=== PATIENT | female | born 1945 | race Caucasian/White ===

== ENCOUNTER 2021-07-18 16:07 | Inpatient (IN) | payer MEDICARE ==
[~2021-07-18] VITALS: Ht 160 cm; Wt 49.4 kg
[~2021-07-18 16:07] MED LIST: AMLO10TA55 PO; HYDR50TA36 PO; LINA5TAB PO; METO50 PO; REPA1TAB5 PO
[2021-07-18 16:52] LABS: BASOPHILS % (AUTO) 0.2 % (0.0-2.0); EOSINOPHILS % (AUTO) 0.8 % (1.0-6.0); HEMATOCRIT 27.1 % (36-46); HEMOGLOBIN 9.1 g/dL (12.0-16.0); LYMPHOCYTES # (AUTO) 0.9 K/uL (1.0-4.8); LYMPHOCYTES % (AUTO) 9.8 % (22.0-44.0); MEAN CORPUSCULAR HEMOGLOBIN 30.3 pg (26.0-34.0); MEAN CORPUSCULAR HGB CONC 33.5 G/dL (31.0-37.0); MEAN CORPUSCULAR VOLUME 91 fL (80-100); MONOCYTES # (AUTO) 0.9 K/uL (0.1-1.0); MONOCYTES % (AUTO) 9.5 % (2.0-9.0); NEUTROPHILS # (AUTO) 7.3 K/uL (1.8-7.7); NEUTROPHILS % (AUTO) 79.7 % (40.0-70.0); PLATELET COUNT (AUTO) 183 K/uL (150-450); RED CELL DISTRIBUTION WIDTH 13.7 % (11.5-14.5)
[2021-07-18 17:01] LABS: CREATININE 1.89 mg/dL (0.60-1.30); POTASSIUM 4.6 mmol/L (3.5-5.1)
[2021-07-18 17:03] LABS: COVID AG,FIA SOURCE NASOPHARYNGEAL
[2021-07-18 17:16] LABS: ALBUMIN 3.1 g/dL (3.4-5.0); BILIRUBIN,TOTAL 0.4 mg/dL (0.1-1.0); FREE T4 (FREE THYROXINE) 1.31 ng/dL (0.76-1.46); THYROID STIMULATING HORMONE 2.7 uIU/mL (0.36-3.74); TOTAL PROTEIN, SERUM 7.6 g/dL (6.4-8.2)
[2021-07-18 17:26] LABS: INFLUENZA TYPE A NEGATIVE FOR TYPE A (NEGATIVE); INFLUENZA TYPE B NEGATIVE FOR TYPE B (NEGATIVE)
[2021-07-18] MEDS ORDERED: FUROSEMIDE 20 MG/2 ML VIAL IVP ONE (17:30)
[2021-07-18] MEDS ORDERED: ASPIRIN 81 MG CHEWABLE TABLET PO ONE (17:30)
[2021-07-18] MEDS ORDERED: 0.9% SODIUM CHLORIDE 10 ML SYRINGE IVP PRN (18:15)
[2021-07-18] MEDS ORDERED: ONDANSETRON HCL 4 MG/2 ML VIAL IVP PRN ×2 (18:15→20:30)
[2021-07-18] MEDS ORDERED: ACETAMINOPHEN 325 MG TABLET PO PRN (18:15)
[2021-07-18] MEDS ORDERED: DEXTROSE 50%-WATER 25 GM/50 ML SYRINGE IVP PRN (20:30)
[2021-07-18] MEDS ORDERED: INSULIN LISPRO 100 UNITS/ML SQ PRN (20:30)
[2021-07-18 21:36] VITALS: BP 194/89
[2021-07-18 21:46] LABS: % IRON SATURATION 6.5 % (22-44)
[2021-07-18] MEDS: FUROSEMIDE 40 MG/4 ML VIAL IVP SCH (21:56)
[2021-07-18] MEDS: HEPARIN SODIUM,PORCINE 5,000 UNITS/ML VIAL SQ SCH (23:44)
[2021-07-19] VITALS (8 sets, daily range): BP systolic 121–186; BP diastolic 51–82
[2021-07-19 06:48] LABS: GLUCOMETER DEV NAME(LOC) 5S.2B; GLUCOSE,POINT OF CARE 77 MG/DL (70-110)
[2021-07-19] MEDS ORDERED: DEXTROSE 50%-WATER 25 GM/50 ML SYRINGE IVP PRN (07:15)
[2021-07-19 08:02] LABS: BASOPHILS % (AUTO) 0.2 % (0.0-2.0); EOSINOPHILS % (AUTO) 0.1 % (1.0-6.0); HEMATOCRIT 27.1 % (36-46); HEMOGLOBIN 9.1 g/dL (12.0-16.0); LYMPHOCYTES # (AUTO) 0.9 K/uL (1.0-4.8); LYMPHOCYTES % (AUTO) 8.9 % (22.0-44.0); MEAN CORPUSCULAR HEMOGLOBIN 30.1 pg (26.0-34.0); MEAN CORPUSCULAR HGB CONC 33.6 G/dL (31.0-37.0); MEAN CORPUSCULAR VOLUME 89 fL (80-100); MONOCYTES # (AUTO) 0.8 K/uL (0.1-1.0); MONOCYTES % (AUTO) 7.4 % (2.0-9.0); NEUTROPHILS # (AUTO) 8.8 K/uL (1.8-7.7); NEUTROPHILS % (AUTO) 83.4 % (40.0-70.0); PLATELET COUNT (AUTO) 186 K/uL (150-450); RED BLOOD CELL COUNT(AUTO) 3.03 MIL/uL (4.00-5.20); RED CELL DISTRIBUTION WIDTH 13.2 % (11.5-14.5)
[2021-07-19] MEDS: FUROSEMIDE 40 MG/4 ML VIAL IVP SCH ×2 (08:06→20:47)
[2021-07-19] MEDS: CARVEDILOL 3.125 MG TABLET PO SCH ×2 (08:07→20:48)
[2021-07-19] MEDS: ASPIRIN 81 MG CHEWABLE TABLET PO SCH (08:07)
[2021-07-19] MEDS: LinaGLIPtin 5 MG TABLET PO SCH (08:07)
[2021-07-19] MEDS: AmLODIPine BESYLATE 10 MG TABLET PO SCH (08:08)
[2021-07-19] MEDS: HEPARIN SODIUM,PORCINE 5,000 UNITS/ML VIAL SQ SCH ×2 (08:08→16:37)
[2021-07-19] MEDS: HydrALAZINE HCL 50 MG TABLET PO SCH ×3 (08:08→20:57)
[2021-07-19 08:09] LABS: CALCIUM, TOTAL 8.3 mg/dL (8.8-10.5); CREATININE 1.71 mg/dL (0.60-1.30); MAGNESIUM 1.9 mg/dL (1.80-2.40); POTASSIUM 3.5 mmol/L (3.5-5.1)
[2021-07-19] MEDS ORDERED: ATORVASTATIN CALCIUM 20 MG TABLET PO SCH (09:00)
[2021-07-19] MEDS ORDERED: BISACODYL 5 MG EC TABLET PO PRN (14:00)
[2021-07-19] MEDS ORDERED: SODIUM CHLORIDE 0.9% 250 ML IV ONE (14:31)
[2021-07-19] MEDS: AZITHROMYCIN 500 MG/NS 250 ML IV SCH (14:37)
[2021-07-19] MEDS: CefTRIAXone 1 GM/DEXTROSE 50 ML IV SCH (16:31)
[2021-07-19] MEDS ORDERED: REPAGLINIDE 1 MG TABLET PO SCH (17:30)
[2021-07-19 18:00] LABS: GLUCOMETER DEV NAME(LOC) 5S.2B; GLUCOSE,POINT OF CARE 280 MG/DL (70-110)
[2021-07-19] MEDS: INSULIN LISPRO 100 UNITS/ML SQ PRN ×2 (18:13→20:52)
[2021-07-19 20:18] LABS: GLUCOMETER DEV NAME(LOC) 5S.1; GLUCOSE,POINT OF CARE 182 MG/DL (70-110)
[2021-07-19] MEDS: ATORVASTATIN CALCIUM 20 MG TABLET PO SCH (20:47)
[2021-07-19 23:51] LABS: GLUCOMETER DEV NAME(LOC) 5N.1C; GLUCOSE,POINT OF CARE 211 MG/DL (70-110)
[2021-07-19 23:57] LABS: GLUCOMETER DEV NAME(LOC) 5N.3; GLUCOSE,POINT OF CARE 102 MG/DL (70-110)
[2021-07-20 00:07] VITALS: BP 110/54
[2021-07-20] MEDS: HEPARIN SODIUM,PORCINE 5,000 UNITS/ML VIAL SQ SCH ×3 (00:31→15:29)
[2021-07-20] MEDS: ACETAMINOPHEN 325 MG TABLET PO PRN (00:32)
[2021-07-20 04:45] VITALS: BP 126/62
[2021-07-20] MEDS: INSULIN LISPRO 100 UNITS/ML SQ PRN ×4 (07:02→20:58)
[2021-07-20 07:22] LABS: BASOPHILS % (AUTO) 0.4 % (0.0-2.0); EOSINOPHILS % (AUTO) 1.1 % (1.0-6.0); HEMATOCRIT 27.1 % (36-46); HEMOGLOBIN 9.1 g/dL (12.0-16.0); LYMPHOCYTES # (AUTO) 1.1 K/uL (1.0-4.8); LYMPHOCYTES % (AUTO) 12.6 % (22.0-44.0); MEAN CORPUSCULAR HGB CONC 33.6 G/dL (31.0-37.0); MEAN CORPUSCULAR VOLUME 89 fL (80-100); MONOCYTES # (AUTO) 0.7 K/uL (0.1-1.0); MONOCYTES % (AUTO) 7.9 % (2.0-9.0); NEUTROPHILS # (AUTO) 6.7 K/uL (1.8-7.7); PLATELET COUNT (AUTO) 224 K/uL (150-450); RED BLOOD CELL COUNT(AUTO) 3.03 MIL/uL (4.00-5.20); RED CELL DISTRIBUTION WIDTH 13.6 % (11.5-14.5)
[2021-07-20 07:42] VITALS: BP 150/64
[2021-07-20 07:49] LABS: CREATININE 2.12 mg/dL (0.60-1.30); PHOSPHORUS 3.9 mg/dL (2.5-4.9); POTASSIUM 3.6 mmol/L (3.5-5.1)
[2021-07-20] MEDS: ASPIRIN 81 MG CHEWABLE TABLET PO SCH (08:55)
[2021-07-20] MEDS: LinaGLIPtin 5 MG TABLET PO SCH (08:56)
[2021-07-20] MEDS: MULTIVITAMINS WITH MINERALS, THERAPEUTIC TABLET PO SCH (08:56)
[2021-07-20] MEDS: ATORVASTATIN CALCIUM 20 MG TABLET PO SCH (08:56)
[2021-07-20] MEDS: CARVEDILOL 3.125 MG TABLET PO SCH ×2 (08:56→20:51)
[2021-07-20] MEDS: HydrALAZINE HCL 50 MG TABLET PO SCH ×3 (08:56→20:51)
[2021-07-20] MEDS: AmLODIPine BESYLATE 10 MG TABLET PO SCH (08:56)
[2021-07-20] MEDS: FUROSEMIDE 40 MG/4 ML VIAL IVP SCH (08:56)
[2021-07-20 11:12] LABS: GLUCOMETER DEV NAME(LOC) 5N.1C; GLUCOSE,POINT OF CARE 169 MG/DL (70-110)
[2021-07-20 12:19] VITALS: BP 143/62
[2021-07-20] MEDS: CefTRIAXone 1 GM/DEXTROSE 50 ML IV SCH (14:17)
[2021-07-20] MEDS: AZITHROMYCIN 500 MG/NS 250 ML IV SCH (15:25)
[2021-07-20 15:44] VITALS: BP 129/55
[2021-07-20 17:08] LABS: APPEARANCE,URINE CLEAR (CLEAR); BILIRUBIN,URINE NEGATIVE (NEGATIVE); GLUCOSE, URINE (UA) NEGATIVE (NEGATIVE); KETONES,URINE NEGATIVE (NEGATIVE); LEUKOCYTE ESTERASE ,URINE NEGATIVE (NEGATIVE); NITRATE,URINE NEGATIVE (NEGATIVE); OCCULT BLOOD,URINE NEGATIVE (NEGATIVE); UROBILINOGEN,URINE 0.2 mg/dL (<=1.0)
[2021-07-20 17:18] LABS: BACTERIA,URINE None Seen /HPF (None Seen); PROTEIN,URINE NEGATIVE (NEGATIVE); RBC,URINE None Seen /HPF (0-2); WBC,URINE None Seen /HPF (0-5)
[2021-07-20 19:50] VITALS: BP 124/54
[2021-07-20] MEDS: FUROSEMIDE 40 MG TABLET PO SCH (20:51)
[2021-07-21 00:06] VITALS: BP 136/68
[2021-07-21 04:10] VITALS: BP 125/64
[2021-07-21 07:52] VITALS: BP 153/62
[2021-07-21] MEDS: HEPARIN SODIUM,PORCINE 5,000 UNITS/ML VIAL SQ SCH ×4 (08:00→23:50)
[2021-07-21] MEDS: AmLODIPine BESYLATE 10 MG TABLET PO SCH (08:19)
[2021-07-21] MEDS: CARVEDILOL 3.125 MG TABLET PO SCH ×2 (08:19→20:12)
[2021-07-21] MEDS: FUROSEMIDE 40 MG TABLET PO SCH (08:29)
[2021-07-21] MEDS: ASPIRIN 81 MG CHEWABLE TABLET PO SCH (08:29)
[2021-07-21] MEDS: ATORVASTATIN CALCIUM 20 MG TABLET PO SCH (08:29)
[2021-07-21] MEDS: MULTIVITAMINS WITH MINERALS, THERAPEUTIC TABLET PO SCH (08:30)
[2021-07-21] MEDS: LinaGLIPtin 5 MG TABLET PO SCH (08:30)
[2021-07-21] MEDS: HydrALAZINE HCL 50 MG TABLET PO SCH ×3 (09:40→20:12)
[2021-07-21 10:41] LABS: BASOPHILS % (AUTO) 0.3 % (0.0-2.0); EOSINOPHILS % (AUTO) 1.3 % (1.0-6.0); HEMATOCRIT 25.9 % (36-46); HEMOGLOBIN 8.6 g/dL (12.0-16.0); LYMPHOCYTES # (AUTO) 0.6 K/uL (1.0-4.8); LYMPHOCYTES % (AUTO) 8.1 % (22.0-44.0); MEAN CORPUSCULAR HEMOGLOBIN 29.8 pg (26.0-34.0); MEAN CORPUSCULAR HGB CONC 33.3 G/dL (31.0-37.0); MEAN CORPUSCULAR VOLUME 90 fL (80-100); MONOCYTES # (AUTO) 0.6 K/uL (0.1-1.0); MONOCYTES % (AUTO) 8.2 % (2.0-9.0); NEUTROPHILS # (AUTO) 6.2 K/uL (1.8-7.7); NEUTROPHILS % (AUTO) 82.1 % (40.0-70.0); PLATELET COUNT (AUTO) 234 K/uL (150-450); RED BLOOD CELL COUNT(AUTO) 2.89 MIL/uL (4.00-5.20); RED CELL DISTRIBUTION WIDTH 13.4 % (11.5-14.5)
[2021-07-21 10:55] LABS: INR 0.9 (0.9-1.1); PROTHROMBIN TIME 10.1 SEC (9.4-11.6)
[2021-07-21 11:11] LABS: CALCIUM, TOTAL 8.5 mg/dL (8.8-10.5); CREATININE 2.27 mg/dL (0.60-1.30); POTASSIUM 4.2 mmol/L (3.5-5.1)
[2021-07-21 11:57] LABS: GLUCOMETER DEV NAME(LOC) 5N.3; GLUCOSE,POINT OF CARE 214 MG/DL (70-110)
[2021-07-21] MEDS: INSULIN LISPRO 100 UNITS/ML SQ PRN ×3 (12:18→20:14)
[2021-07-21 12:28] LABS: GLUCOMETER DEV NAME(LOC) 5N.3; GLUCOSE,POINT OF CARE 291 MG/DL (70-110)
[2021-07-21] MEDS: CefTRIAXone 1 GM/DEXTROSE 50 ML IV SCH (13:26)
[2021-07-21 14:05] LABS: PROTHROMBIN TIME 10.2 SEC (9.4-11.6)
[2021-07-21 14:15] LABS: SPECIMENTYPE,BODY FLUID THORACENTESIS
[2021-07-21 14:42] LABS: APPEARANCE,SPUN,BODY FLUID CLEAR (CLEAR); APPEARANCE,UNSPUN,BODY FLUID CLOUDY (CLEAR); BASOPHILS,BODY FLUID 0 %; COLOR,BODY FLUID YELLOW (LT YELLOW); EOSINOPHILS,BF (ANAL) 0 %; LYMPHOCYTES,BODY FLUID 28 %; MONOCYTES,BODY FLUID 3 %; NEUTROPHILS,BODY FLUID 58 %; TOTAL VOLUME,BODY FLUID 450 mL; WBC, BODY FLUID 69 /cu. mm.
[2021-07-21 14:44] LABS: OTHER CELLS,BODY FLUID 11
[2021-07-21] MEDS: AZITHROMYCIN 500 MG/NS 250 ML IV SCH (15:44)
[2021-07-21 15:49] VITALS: BP 137/64
[2021-07-21 20:30] VITALS: BP 126/61
[2021-07-22] VITALS (7 sets, daily range): BP systolic 117–133; BP diastolic 44–65
[2021-07-22 00:04] LABS: GLUCOMETER DEV NAME(LOC) 5N.1C; GLUCOSE,POINT OF CARE 226 MG/DL (70-110)
[2021-07-22 00:04] LABS: GLUCOMETER DEV NAME(LOC) 5N.1C; GLUCOSE,POINT OF CARE 200 MG/DL (70-110)
[2021-07-22 00:04] LABS: GLUCOMETER DEV NAME(LOC) 5N.1C; GLUCOSE,POINT OF CARE 257 MG/DL (70-110)
[2021-07-22 00:04] LABS: GLUCOMETER DEV NAME(LOC) 5N.1C; GLUCOSE,POINT OF CARE 220 MG/DL (70-110)
[2021-07-22 00:04] LABS: GLUCOMETER DEV NAME(LOC) 5N.1C; GLUCOSE,POINT OF CARE 258 MG/DL (70-110)
[2021-07-22] MEDS: INSULIN LISPRO 100 UNITS/ML SQ PRN ×4 (05:33→20:52)
[2021-07-22 06:43] LABS: BASOPHILS % (AUTO) 0.6 % (0.0-2.0); EOSINOPHILS % (AUTO) 2.4 % (1.0-6.0); HEMATOCRIT 22.2 % (36-46); HEMOGLOBIN 7.5 g/dL (12.0-16.0); LYMPHOCYTES # (AUTO) 0.9 K/uL (1.0-4.8); LYMPHOCYTES % (AUTO) 15.1 % (22.0-44.0); MEAN CORPUSCULAR HEMOGLOBIN 30.2 pg (26.0-34.0); MEAN CORPUSCULAR HGB CONC 33.8 G/dL (31.0-37.0); MEAN CORPUSCULAR VOLUME 89 fL (80-100); MONOCYTES # (AUTO) 0.5 K/uL (0.1-1.0); NEUTROPHILS # (AUTO) 4.4 K/uL (1.8-7.7); NEUTROPHILS % (AUTO) 72.9 % (40.0-70.0); PLATELET COUNT (AUTO) 213 K/uL (150-450); RED BLOOD CELL COUNT(AUTO) 2.48 MIL/uL (4.00-5.20)
[2021-07-22 07:04] LABS: CALCIUM, TOTAL 8.1 mg/dL (8.8-10.5); CREATININE 2.34 mg/dL (0.60-1.30); POTASSIUM 3.7 mmol/L (3.5-5.1)
[2021-07-22 08:23] LABS: GLUCOMETER DEV NAME(LOC) 5N.1C; GLUCOSE,POINT OF CARE 175 MG/DL (70-110)
[2021-07-22] MEDS: LinaGLIPtin 5 MG TABLET PO SCH (08:35)
[2021-07-22] MEDS: ATORVASTATIN CALCIUM 20 MG TABLET PO SCH (08:35)
[2021-07-22] MEDS: MULTIVITAMINS WITH MINERALS, THERAPEUTIC TABLET PO SCH (08:36)
[2021-07-22] MEDS: ASPIRIN 81 MG CHEWABLE TABLET PO SCH (08:36)
[2021-07-22] MEDS: CARVEDILOL 3.125 MG TABLET PO SCH ×2 (08:36→20:44)
[2021-07-22] MEDS: HEPARIN SODIUM,PORCINE 5,000 UNITS/ML VIAL SQ SCH ×2 (08:36→15:41)
[2021-07-22] MEDS: AmLODIPine BESYLATE 10 MG TABLET PO SCH (08:39)
[2021-07-22] MEDS: HydrALAZINE HCL 50 MG TABLET PO SCH (08:41)
[2021-07-22] MEDS ORDERED: BENZONATATE 100 MG CAPSULE PO PRN (14:15)
[2021-07-22] MEDS ORDERED: GuaiFENesin/D-METHORPHAN/PHENYLEPH 5 ML LIQUID ORAL.SYG PO PRN (14:15)
[2021-07-22] MEDS: LORATADINE 10 MG TABLET PO SCH (15:38)
[2021-07-22] MEDS: HydrALAZINE HCL 25 MG TABLET PO SCH ×2 (15:40→20:44)
[2021-07-22 17:17] LABS: GLUCOMETER DEV NAME(LOC) 5S.2B; GLUCOSE,POINT OF CARE 267 MG/DL (70-110)
[2021-07-22 22:08] LABS: GLUCOMETER DEV NAME(LOC) 5S.2B; GLUCOSE,POINT OF CARE 271 MG/DL (70-110)
[2021-07-22 22:09] LABS: GLUCOMETER DEV NAME(LOC) 5S.2B; GLUCOSE,POINT OF CARE 282 MG/DL (70-110)
[2021-07-22 22:53] LABS: APPEARANCE,URINE CLOUDY (CLEAR); BILIRUBIN,URINE NEGATIVE (NEGATIVE); GLUCOSE, URINE (UA) 100 mg/dL (NEGATIVE); KETONES,URINE NEGATIVE (NEGATIVE); LEUKOCYTE ESTERASE ,URINE NEGATIVE (NEGATIVE); NITRATE,URINE NEGATIVE (NEGATIVE); OCCULT BLOOD,URINE NEGATIVE (NEGATIVE); PROTEIN,URINE SEE CONFIRM (NEGATIVE); UROBILINOGEN,URINE 0.2 mg/dL (<=1.0)
[2021-07-22 22:57] LABS: SODIUM,URINE RANDOM 14 mmol/l (20-110); UREA NITROGEN,URINE RANDOM 585 mg/dL (350-1000)
[2021-07-22 23:05] LABS: AMORPHOUS SEDIMENT,UR Moderate /LPF (None Seen); BACTERIA,URINE Few /HPF (None Seen); RBC,URINE None Seen /HPF (0-2); SQUAMOUS EPITHELIAL CELL,UR Few /LPF (None Seen); WBC,URINE 0-2 /HPF (0-5)
[2021-07-22 23:07] LABS: SULFOSALICYLIC ACID,URINE 2+ (Negative)
[2021-07-23] VITALS (7 sets, daily range): BP systolic 114–138; BP diastolic 50–66
[2021-07-23] MEDS: HEPARIN SODIUM,PORCINE 5,000 UNITS/ML VIAL SQ SCH ×4 (00:01→23:30)
[2021-07-23] MEDS: INSULIN LISPRO 100 UNITS/ML SQ PRN ×4 (06:09→20:10)
[2021-07-23 06:22] LABS: GLUCOMETER DEV NAME(LOC) 5S.2B; GLUCOSE,POINT OF CARE 229 MG/DL (70-110)
[2021-07-23 07:06] LABS: BASOPHILS % (AUTO) 0.4 % (0.0-2.0); EOSINOPHILS % (AUTO) 3.5 % (1.0-6.0); HEMATOCRIT 22.5 % (36-46); HEMOGLOBIN 7.5 g/dL (12.0-16.0); LYMPHOCYTES # (AUTO) 0.8 K/uL (1.0-4.8); LYMPHOCYTES % (AUTO) 14.5 % (22.0-44.0); MEAN CORPUSCULAR HEMOGLOBIN 29.9 pg (26.0-34.0); MEAN CORPUSCULAR HGB CONC 33.5 G/dL (31.0-37.0); MEAN CORPUSCULAR VOLUME 89 fL (80-100); MONOCYTES # (AUTO) 0.5 K/uL (0.1-1.0); MONOCYTES % (AUTO) 9.4 % (2.0-9.0); NEUTROPHILS % (AUTO) 72.2 % (40.0-70.0); PLATELET COUNT (AUTO) 235 K/uL (150-450); RED BLOOD CELL COUNT(AUTO) 2.52 MIL/uL (4.00-5.20); RED CELL DISTRIBUTION WIDTH 13.1 % (11.5-14.5)
[2021-07-23 07:35] LABS: % IRON SATURATION 14.7 % (22-44); CALCIUM, TOTAL 8.2 mg/dL (8.8-10.5); CREATININE 2.34 mg/dL (0.60-1.30); PHOSPHORUS 4.6 mg/dL (2.5-4.9); POTASSIUM 3.8 mmol/L (3.5-5.1)
[2021-07-23] MEDS: MULTIVITAMINS WITH MINERALS, THERAPEUTIC TABLET PO SCH (09:40)
[2021-07-23] MEDS: ATORVASTATIN CALCIUM 20 MG TABLET PO SCH (09:40)
[2021-07-23] MEDS: CARVEDILOL 3.125 MG TABLET PO SCH ×2 (09:40→20:13)
[2021-07-23] MEDS: HydrALAZINE HCL 25 MG TABLET PO SCH ×3 (09:40→20:13)
[2021-07-23] MEDS: AmLODIPine BESYLATE 5 MG TABLET PO SCH (09:40)
[2021-07-23] MEDS: LORATADINE 10 MG TABLET PO SCH (09:41)
[2021-07-23] MEDS: ASPIRIN 81 MG CHEWABLE TABLET PO SCH (09:41)
[2021-07-23] MEDS ORDERED: SODIUM CHLORIDE 0.9% 250 ML IV ONE (12:09)
[2021-07-23] MEDS: SOD FERRIC GLUC COMPLX/SUCROSE 125 MG in SODIUM CHLORIDE 0.9% 100 ML IV SCH (12:13)
[2021-07-23 12:53] LABS: GLUCOMETER DEV NAME(LOC) 5S.2B; GLUCOSE,POINT OF CARE 214 MG/DL (70-110)
[2021-07-23 17:57] LABS: GLUCOMETER DEV NAME(LOC) 5S.1; GLUCOSE,POINT OF CARE 266 MG/DL (70-110)
[2021-07-24 04:45] VITALS: BP 130/52
[2021-07-24] MEDS: INSULIN LISPRO 100 UNITS/ML SQ PRN ×4 (06:00→20:27)
[2021-07-24 06:35] LABS: CALCIUM, TOTAL 8.7 mg/dL (8.8-10.5); CREATININE 2.45 mg/dL (0.60-1.30); MAGNESIUM 2.7 mg/dL (1.80-2.40); PHOSPHORUS 4.7 mg/dL (2.5-4.9); POTASSIUM 3.9 mmol/L (3.5-5.1)
[2021-07-24 08:00] VITALS: BP 121/55
[2021-07-24] MEDS: HEPARIN SODIUM,PORCINE 5,000 UNITS/ML VIAL SQ SCH ×2 (08:19→17:26)
[2021-07-24] MEDS: LORATADINE 10 MG TABLET PO SCH (08:19)
[2021-07-24] MEDS: ATORVASTATIN CALCIUM 20 MG TABLET PO SCH (08:20)
[2021-07-24] MEDS: MULTIVITAMINS WITH MINERALS, THERAPEUTIC TABLET PO SCH (08:20)
[2021-07-24] MEDS: ASPIRIN 81 MG CHEWABLE TABLET PO SCH (08:20)
[2021-07-24] MEDS: AmLODIPine BESYLATE 5 MG TABLET PO SCH (08:20)
[2021-07-24] MEDS: HydrALAZINE HCL 25 MG TABLET PO SCH ×3 (08:20→20:23)
[2021-07-24] MEDS: CARVEDILOL 3.125 MG TABLET PO SCH ×2 (08:20→20:23)
[2021-07-24] MEDS: EPOETIN ALFA 10,000 UNITS/ML VIAL SQ SCH (08:21)
[2021-07-24] MEDS: ALBUMIN HUMAN 25%-25GM/100ML 100 ML IV SCH ×3 (09:49→20:23)
[2021-07-24] MEDS ORDERED: SODIUM CHLORIDE 0.9% 250 ML IV ONE (11:01)
[2021-07-24] MEDS: SOD FERRIC GLUC COMPLX/SUCROSE 125 MG in SODIUM CHLORIDE 0.9% 100 ML IV SCH (11:16)
[2021-07-24 12:30] VITALS: BP 127/51
[2021-07-24 15:45] VITALS: BP 136/66
[2021-07-24 20:46] LABS: GLUCOMETER DEV NAME(LOC) 5N.1C; GLUCOSE,POINT OF CARE 180 MG/DL (70-110)
[2021-07-24 20:46] LABS: GLUCOMETER DEV NAME(LOC) 5N.1C; GLUCOSE,POINT OF CARE 196 MG/DL (70-110)
[2021-07-24 20:47] VITALS: BP 132/59
[2021-07-24 23:39] LABS: GLUCOMETER DEV NAME(LOC) 5S.2B; GLUCOSE,POINT OF CARE 257 MG/DL (70-110)
[2021-07-24 23:39] LABS: GLUCOMETER DEV NAME(LOC) 5S.2B; GLUCOSE,POINT OF CARE 253 MG/DL (70-110)
[2021-07-24 23:39] LABS: GLUCOMETER DEV NAME(LOC) 5S.2B; GLUCOSE,POINT OF CARE 206 MG/DL (70-110)
[2021-07-25] VITALS (8 sets, daily range): BP systolic 110–139; BP diastolic 47–65
[2021-07-25] MEDS: ALBUMIN HUMAN 25%-25GM/100ML 100 ML IV SCH (02:45)
[2021-07-25] MEDS: INSULIN LISPRO 100 UNITS/ML SQ PRN ×4 (05:32→21:11)
[2021-07-25 06:49] LABS: CALCIUM, TOTAL 8.5 mg/dL (8.8-10.5); CREATININE 2.55 mg/dL (0.60-1.30)
[2021-07-25] MEDS: HEPARIN SODIUM,PORCINE 5,000 UNITS/ML VIAL SQ SCH ×3 (08:38→15:28)
[2021-07-25] MEDS: ASPIRIN 81 MG CHEWABLE TABLET PO SCH (08:38)
[2021-07-25] MEDS: CARVEDILOL 3.125 MG TABLET PO SCH ×2 (08:38→21:02)
[2021-07-25] MEDS: ATORVASTATIN CALCIUM 20 MG TABLET PO SCH (08:39)
[2021-07-25] MEDS: MULTIVITAMINS WITH MINERALS, THERAPEUTIC TABLET PO SCH (08:39)
[2021-07-25] MEDS: HydrALAZINE HCL 25 MG TABLET PO SCH ×2 (08:39→21:02)
[2021-07-25] MEDS: LORATADINE 10 MG TABLET PO SCH (08:39)
[2021-07-25] MEDS: AmLODIPine BESYLATE 5 MG TABLET PO SCH (08:40)
[2021-07-25] MEDS: ACETAMINOPHEN 325 MG TABLET PO PRN (08:57)
[2021-07-25] MEDS: SOD FERRIC GLUC COMPLX/SUCROSE 125 MG in SODIUM CHLORIDE 0.9% 100 ML IV SCH (12:13)
[2021-07-25] MEDS ORDERED: ALBUMIN HUMAN 5%-12.5GM/250ML 250 ML IV ONE (13:00)
[2021-07-25] MEDS: FUROSEMIDE 40 MG/4 ML VIAL IVP SCH (15:44)
[2021-07-25 16:53] LABS: GLUCOMETER DEV NAME(LOC) 5N.3; GLUCOSE,POINT OF CARE 241 MG/DL (70-110)
[2021-07-25 17:28] LABS: GLUCOMETER DEV NAME(LOC) 5N.1C; GLUCOSE,POINT OF CARE 193 MG/DL (70-110)
[2021-07-26 04:09] VITALS: BP 132/56
[2021-07-26 06:38] LABS: GLUCOMETER DEV NAME(LOC) 5N.3; GLUCOSE,POINT OF CARE 310 MG/DL (70-110)
[2021-07-26 06:38] LABS: GLUCOMETER DEV NAME(LOC) 5N.3; GLUCOSE,POINT OF CARE 181 MG/DL (70-110)
[2021-07-26 07:18] LABS: BASOPHILS % (AUTO) 0.3 % (0.0-2.0); EOSINOPHILS % (AUTO) 1.3 % (1.0-6.0); HEMATOCRIT 22.9 % (36-46); HEMOGLOBIN 7.5 g/dL (12.0-16.0); LYMPHOCYTES # (AUTO) 0.6 K/uL (1.0-4.8); LYMPHOCYTES % (AUTO) 8.9 % (22.0-44.0); MEAN CORPUSCULAR HEMOGLOBIN 29.4 pg (26.0-34.0); MEAN CORPUSCULAR HGB CONC 32.8 G/dL (31.0-37.0); MEAN CORPUSCULAR VOLUME 90 fL (80-100); MONOCYTES # (AUTO) 0.5 K/uL (0.1-1.0); MONOCYTES % (AUTO) 8.4 % (2.0-9.0); NEUTROPHILS # (AUTO) 5.2 K/uL (1.8-7.7); NEUTROPHILS % (AUTO) 81.1 % (40.0-70.0); PLATELET COUNT (AUTO) 259 K/uL (150-450); RED BLOOD CELL COUNT(AUTO) 2.55 MIL/uL (4.00-5.20); RED CELL DISTRIBUTION WIDTH 13.1 % (11.5-14.5)
[2021-07-26 07:48] LABS: ALBUMIN 3.4 g/dL (3.4-5.0); BILIRUBIN,TOTAL 0.3 mg/dL (0.1-1.0); CALCIUM, TOTAL 8.5 mg/dL (8.8-10.5); CREATININE 2.71 mg/dL (0.60-1.30); MAGNESIUM 2.2 mg/dL (1.80-2.40); PHOSPHORUS 4.8 mg/dL (2.5-4.9); TOTAL PROTEIN, SERUM 6.9 g/dL (6.4-8.2)
[2021-07-26] MEDS: HEPARIN SODIUM,PORCINE 5,000 UNITS/ML VIAL SQ SCH ×3 (08:00→15:06)
[2021-07-26 08:02] VITALS: BP 145/56
[2021-07-26] MEDS: FUROSEMIDE 40 MG/4 ML VIAL IVP SCH (08:28)
[2021-07-26] MEDS: LORATADINE 10 MG TABLET PO SCH (10:52)
[2021-07-26] MEDS: ATORVASTATIN CALCIUM 20 MG TABLET PO SCH (10:52)
[2021-07-26] MEDS: HydrALAZINE HCL 25 MG TABLET PO SCH ×2 (10:52→21:15)
[2021-07-26] MEDS: ASPIRIN 81 MG CHEWABLE TABLET PO SCH (10:52)
[2021-07-26] MEDS: AmLODIPine BESYLATE 5 MG TABLET PO SCH (10:52)
[2021-07-26] MEDS: CARVEDILOL 3.125 MG TABLET PO SCH ×2 (10:52→21:15)
[2021-07-26] MEDS: MULTIVITAMINS WITH MINERALS, THERAPEUTIC TABLET PO SCH (10:52)
[2021-07-26] MEDS: SOD FERRIC GLUC COMPLX/SUCROSE 125 MG in SODIUM CHLORIDE 0.9% 100 ML IV SCH (10:53)
[2021-07-26] MEDS: EPOETIN ALFA 10,000 UNITS/ML VIAL SQ SCH (10:53)
[2021-07-26 10:58] LABS: SPECIMENTYPE,BODY FLUID PLEURAL
[2021-07-26 11:30] VITALS: BP 146/60
[2021-07-26] MEDS: INSULIN LISPRO 100 UNITS/ML SQ PRN ×3 (11:31→21:20)
[2021-07-26 11:52] LABS: APPEARANCE,SPUN,BODY FLUID CLEAR (CLEAR); APPEARANCE,UNSPUN,BODY FLUID HAZY (CLEAR); COLOR,BODY FLUID YELLOW (LT YELLOW); TOTAL VOLUME,BODY FLUID 1300 mL; WBC, BODY FLUID 6 /cu. mm.
[2021-07-26 11:53] LABS: BASOPHILS,BODY FLUID 0 %; EOSINOPHILS,BF (ANAL) 0 %; LYMPHOCYTES,BODY FLUID 92 %; MONOCYTES,BODY FLUID 4 %; NEUTROPHILS,BODY FLUID 4 %
[2021-07-26 15:34] VITALS: BP 118/51
[2021-07-26 16:39] LABS: GLUCOMETER DEV NAME(LOC) 5S.1; GLUCOSE,POINT OF CARE 211 MG/DL (70-110)
[2021-07-26 19:12] LABS: APPEARANCE,URINE CLEAR (CLEAR); BILIRUBIN,URINE NEGATIVE (NEGATIVE); GLUCOSE, URINE (UA) 100 mg/dL (NEGATIVE); KETONES,URINE NEGATIVE (NEGATIVE); LEUKOCYTE ESTERASE ,URINE TRACE (NEGATIVE); NITRATE,URINE NEGATIVE (NEGATIVE); OCCULT BLOOD,URINE NEGATIVE (NEGATIVE); PROTEIN,URINE SEE CONFIRM (NEGATIVE); UROBILINOGEN,URINE 0.2 mg/dL (<=1.0)
[2021-07-26 19:46] LABS: AMORPHOUS SEDIMENT,UR Few /LPF (None Seen); BACTERIA,URINE Few /HPF (None Seen); RBC,URINE 0-2 /HPF (0-2); SQUAMOUS EPITHELIAL CELL,UR Few /LPF (None Seen); WBC,URINE None Seen /HPF (0-5)
[2021-07-26 19:47] VITALS: BP 127/57
[2021-07-26 19:48] LABS: SULFOSALICYLIC ACID,URINE 2+ (Negative)
[2021-07-26 23:50] VITALS: BP 116/57
[2021-07-27] MEDS: HEPARIN SODIUM,PORCINE 5,000 UNITS/ML VIAL SQ SCH ×3 (00:58→16:00)
[2021-07-27 04:03] VITALS: BP 126/59
[2021-07-27 05:38] LABS: INR 1.1 (0.9-1.1); PROTHROMBIN TIME 11.2 SEC (9.4-11.6)
[2021-07-27 06:19] LABS: CALCIUM, TOTAL 8.3 mg/dL (8.8-10.5); CREATININE 3.18 mg/dL (0.60-1.30); MAGNESIUM 2.7 mg/dL (1.80-2.40); PHOSPHORUS 5.3 mg/dL (2.5-4.9); POTASSIUM 3.9 mmol/L (3.5-5.1)
[2021-07-27 07:22] VITALS: BP 116/83
[2021-07-27 07:39] LABS: CREATININE,URINE RANDOM 145.9 mg/dL (30.0-125.0)
[2021-07-27] MEDS: FUROSEMIDE 40 MG/4 ML VIAL IVP SCH (09:00)
[2021-07-27] MEDS ORDERED: FLUMAZENIL 0.1 MG/ML 5 ML VIAL IVP ONE (10:04)
[2021-07-27] MEDS ORDERED: NALOXONE HCL 0.4 MG/ML VIAL ONE (10:04)
[2021-07-27] MEDS ORDERED: MIDAZOLAM HCL 2 MG/2 ML VIAL ONE (10:04)
[2021-07-27] MEDS ORDERED: FentaNYL CITRATE PF 100 MCG/2 ML VIAL ONE (10:05)
[2021-07-27] MEDS ORDERED: LIDOCAINE 1%/EPI 1:200,000/PF 10 ML VIAL ONE (10:42)
[2021-07-27] MEDS ORDERED: GELATIN SPONGE,ABSORBABLE 12-7 MM TP ONE (11:02)
[2021-07-27 11:03] VITALS: BP 135/50
[2021-07-27] MEDS ORDERED: MIDAZOLAM HCL 2 MG/2 ML VIAL IVP ONE (11:04)
[2021-07-27] MEDS ORDERED: FentaNYL CITRATE PF 100 MCG/2 ML VIAL IVP ONE (11:04)
[2021-07-27] MEDS ORDERED: MAGNESIUM HYDROXIDE SUSPENSION 30 ML UDCUP PO PRN (11:15)
[2021-07-27] MEDS: INSULIN LISPRO 100 UNITS/ML SQ PRN ×3 (12:41→21:08)
[2021-07-27] MEDS: SOD FERRIC GLUC COMPLX/SUCROSE 125 MG in SODIUM CHLORIDE 0.9% 100 ML IV SCH (12:42)
[2021-07-27] MEDS: ATORVASTATIN CALCIUM 20 MG TABLET PO SCH (12:44)
[2021-07-27] MEDS: CARVEDILOL 3.125 MG TABLET PO SCH ×2 (12:44→21:01)
[2021-07-27] MEDS: LORATADINE 10 MG TABLET PO SCH (12:45)
[2021-07-27] MEDS: MULTIVITAMINS WITH MINERALS, THERAPEUTIC TABLET PO SCH (12:45)
[2021-07-27] MEDS: ASPIRIN 81 MG CHEWABLE TABLET PO SCH (12:45)
[2021-07-27] MEDS: HydrALAZINE HCL 25 MG TABLET PO SCH ×2 (12:45→21:01)
[2021-07-27] MEDS: DOCUSATE SODIUM 250 MG CAPSULE PO PRN (12:45)
[2021-07-27] MEDS ORDERED: SODIUM CHLORIDE 0.9% 250 ML IV ONE (13:26)
[2021-07-27 15:43] VITALS: BP 128/54
[2021-07-27] MEDS: AmLODIPine BESYLATE 5 MG TABLET PO SCH (18:05)
[2021-07-27 18:54] LABS: GLUCOMETER DEV NAME(LOC) 5S.1; GLUCOSE,POINT OF CARE 251 MG/DL (70-110)
[2021-07-27 18:54] LABS: GLUCOMETER DEV NAME(LOC) 5S.1; GLUCOSE,POINT OF CARE 175 MG/DL (70-110)
[2021-07-27 18:54] LABS: GLUCOMETER DEV NAME(LOC) 5S.1; GLUCOSE,POINT OF CARE 200 MG/DL (70-110)
[2021-07-27 18:54] LABS: GLUCOMETER DEV NAME(LOC) 5S.1; GLUCOSE,POINT OF CARE 200 MG/DL (70-110)
[2021-07-27 20:16] VITALS: BP 155/67
[2021-07-27 23:39] VITALS: BP 130/63
[2021-07-28 02:05] LABS: GLUCOMETER DEV NAME(LOC) 5N.1C; GLUCOSE,POINT OF CARE 173 MG/DL (70-110)
[2021-07-28 05:04] VITALS: BP 130/54
[2021-07-28] MEDS: INSULIN LISPRO 100 UNITS/ML SQ PRN ×4 (06:01→21:02)
[2021-07-28 07:20] VITALS: BP 121/74
[2021-07-28 08:06] LABS: IGM (IMMUNOFIXATION) 63 mg/dL (26-217)
[2021-07-28 08:15] LABS: CALCIUM, TOTAL 8.1 mg/dL (8.8-10.5); CREATININE 3.34 mg/dL (0.60-1.30); MAGNESIUM 2.5 mg/dL (1.80-2.40); PHOSPHORUS 5.1 mg/dL (2.5-4.9); POTASSIUM 4.3 mmol/L (3.5-5.1)
[2021-07-28] MEDS: EPOETIN ALFA 10,000 UNITS/ML VIAL SQ SCH (09:00)
[2021-07-28] MEDS: HEPARIN SODIUM,PORCINE 5,000 UNITS/ML VIAL SQ SCH ×3 (09:00→16:38)
[2021-07-28] MEDS: FUROSEMIDE 40 MG/4 ML VIAL IVP SCH (09:00)
[2021-07-28] MEDS: MULTIVITAMINS WITH MINERALS, THERAPEUTIC TABLET PO SCH (09:01)
[2021-07-28] MEDS: AmLODIPine BESYLATE 5 MG TABLET PO SCH (09:01)
[2021-07-28] MEDS: ASPIRIN 81 MG CHEWABLE TABLET PO SCH (09:01)
[2021-07-28] MEDS: CARVEDILOL 3.125 MG TABLET PO SCH ×2 (09:01→21:03)
[2021-07-28] MEDS: ATORVASTATIN CALCIUM 20 MG TABLET PO SCH (09:01)
[2021-07-28] MEDS: HydrALAZINE HCL 25 MG TABLET PO SCH ×2 (09:01→21:03)
[2021-07-28] MEDS: LORATADINE 10 MG TABLET PO SCH (09:01)
[2021-07-28 11:20] VITALS: BP 137/61
[2021-07-28] MEDS: SOD FERRIC GLUC COMPLX/SUCROSE 125 MG in SODIUM CHLORIDE 0.9% 100 ML IV SCH (11:31)
[2021-07-28 15:36] VITALS: BP 124/57
[2021-07-28 17:16] LABS: GLUCOMETER DEV NAME(LOC) 5S.1; GLUCOSE,POINT OF CARE 204 MG/DL (70-110)
[2021-07-28 19:34] VITALS: BP 126/59
[2021-07-28 19:41] LABS: GLUCOMETER DEV NAME(LOC) 5S.1; GLUCOSE,POINT OF CARE 219 MG/DL (70-110)
[2021-07-28 23:26] VITALS: BP 124/55
[2021-07-29] MEDS: HEPARIN SODIUM,PORCINE 5,000 UNITS/ML VIAL SQ SCH ×4 (00:14→23:48)
[2021-07-29 04:24] VITALS: BP 136/56
[2021-07-29] MEDS: INSULIN LISPRO 100 UNITS/ML SQ PRN ×4 (05:55→20:54)
[2021-07-29 06:37] LABS: GLUCOMETER DEV NAME(LOC) 5N.3; GLUCOSE,POINT OF CARE 230 MG/DL (70-110)
[2021-07-29 06:37] LABS: GLUCOMETER DEV NAME(LOC) 5N.3; GLUCOSE,POINT OF CARE 200 MG/DL (70-110)
[2021-07-29 06:37] LABS: GLUCOMETER DEV NAME(LOC) 5N.3; GLUCOSE,POINT OF CARE 223 MG/DL (70-110)
[2021-07-29 07:11] VITALS: BP 128/54
[2021-07-29 07:54] LABS: GLUCOMETER DEV NAME(LOC) 5N.1C; GLUCOSE,POINT OF CARE 202 MG/DL (70-110)
[2021-07-29] MEDS: HydrALAZINE HCL 25 MG TABLET PO SCH ×2 (08:37→20:39)
[2021-07-29] MEDS: FUROSEMIDE 40 MG/4 ML VIAL IVP SCH (08:37)
[2021-07-29] MEDS: ASPIRIN 81 MG CHEWABLE TABLET PO SCH (08:37)
[2021-07-29] MEDS: CARVEDILOL 3.125 MG TABLET PO SCH ×2 (08:39→20:39)
[2021-07-29] MEDS: LORATADINE 10 MG TABLET PO SCH (08:39)
[2021-07-29] MEDS: ATORVASTATIN CALCIUM 20 MG TABLET PO SCH (08:40)
[2021-07-29] MEDS: MULTIVITAMINS WITH MINERALS, THERAPEUTIC TABLET PO SCH (08:40)
[2021-07-29] MEDS: AmLODIPine BESYLATE 5 MG TABLET PO SCH (08:40)
[2021-07-29] MEDS: SOD FERRIC GLUC COMPLX/SUCROSE 125 MG in SODIUM CHLORIDE 0.9% 100 ML IV SCH (10:35)
[2021-07-29 10:48] VITALS: BP 126/62
[2021-07-29] MEDS ORDERED: SODIUM CHLORIDE 0.9% 500 ML IV ONE (12:04)
[2021-07-29 15:34] VITALS: BP 124/56
[2021-07-29 18:17] LABS: GLUCOMETER DEV NAME(LOC) 5N.3; GLUCOSE,POINT OF CARE 225 MG/DL (70-110)
[2021-07-29 18:17] LABS: GLUCOMETER DEV NAME(LOC) 5N.3; GLUCOSE,POINT OF CARE 283 MG/DL (70-110)
[2021-07-29 19:26] VITALS: BP 135/50
[2021-07-29 23:41] VITALS: BP 141/63
[2021-07-30 00:13] LABS: GLUCOMETER DEV NAME(LOC) 5N.1C; GLUCOSE,POINT OF CARE 239 MG/DL (70-110)
[2021-07-30 04:11] VITALS: BP 137/89
[2021-07-30] MEDS: INSULIN LISPRO 100 UNITS/ML SQ PRN ×4 (05:40→21:11)
[2021-07-30 07:03] LABS: GLUCOMETER DEV NAME(LOC) 5S.1; GLUCOSE,POINT OF CARE 214 MG/DL (70-110)
[2021-07-30 07:36] LABS: CREATININE 3.8 mg/dL (0.60-1.30); MAGNESIUM 2.8 mg/dL (1.80-2.40); PHOSPHORUS 4.6 mg/dL (2.5-4.9); POTASSIUM 4.4 mmol/L (3.5-5.1)
[2021-07-30 07:38] LABS: BASOPHILS % (AUTO) 0.2 % (0.0-2.0); EOSINOPHILS % (AUTO) 3.2 % (1.0-6.0); HEMOGLOBIN 7.6 g/dL (12.0-16.0); LYMPHOCYTES % (AUTO) 11.6 % (22.0-44.0); MEAN CORPUSCULAR HEMOGLOBIN 30.2 pg (26.0-34.0); MEAN CORPUSCULAR HGB CONC 33.1 G/dL (31.0-37.0); MEAN CORPUSCULAR VOLUME 91 fL (80-100); MONOCYTES # (AUTO) 0.8 K/uL (0.1-1.0); MONOCYTES % (AUTO) 9.9 % (2.0-9.0); NEUTROPHILS # (AUTO) 6.3 K/uL (1.8-7.7); NEUTROPHILS % (AUTO) 75.1 % (40.0-70.0); PLATELET COUNT (AUTO) 348 K/uL (150-450); RED BLOOD CELL COUNT(AUTO) 2.52 MIL/uL (4.00-5.20); RED CELL DISTRIBUTION WIDTH 13.5 % (11.5-14.5)
[2021-07-30 08:25] VITALS: BP 140/61
[2021-07-30] MEDS: AmLODIPine BESYLATE 5 MG TABLET PO SCH (08:59)
[2021-07-30] MEDS: FUROSEMIDE 40 MG/4 ML VIAL IVP SCH (08:59)
[2021-07-30] MEDS: HydrALAZINE HCL 25 MG TABLET PO SCH ×2 (08:59→20:14)
[2021-07-30] MEDS: CARVEDILOL 3.125 MG TABLET PO SCH ×2 (08:59→20:14)
[2021-07-30] MEDS: ATORVASTATIN CALCIUM 20 MG TABLET PO SCH (08:59)
[2021-07-30] MEDS: ASPIRIN 81 MG CHEWABLE TABLET PO SCH (08:59)
[2021-07-30] MEDS: LORATADINE 10 MG TABLET PO SCH (08:59)
[2021-07-30] MEDS: MULTIVITAMINS WITH MINERALS, THERAPEUTIC TABLET PO SCH (08:59)
[2021-07-30] MEDS: HEPARIN SODIUM,PORCINE 5,000 UNITS/ML VIAL SQ SCH ×3 (09:00→23:46)
[2021-07-30 11:41] VITALS: BP 138/57
[2021-07-30] MEDS: SOD FERRIC GLUC COMPLX/SUCROSE 125 MG in SODIUM CHLORIDE 0.9% 100 ML IV SCH (15:08)
[2021-07-30 15:43] VITALS: BP 130/55
[2021-07-30] MEDS: ACETAMINOPHEN 325 MG TABLET PO PRN (17:48)
[2021-07-30 18:16] LABS: GLUCOMETER DEV NAME(LOC) 5N.1C; GLUCOSE,POINT OF CARE 250 MG/DL (70-110)
[2021-07-30 19:55] VITALS: BP 136/59
[2021-07-30 21:53] LABS: GLUCOMETER DEV NAME(LOC) 5S.1; GLUCOSE,POINT OF CARE 250 MG/DL (70-110)
[2021-07-30 21:54] LABS: GLUCOMETER DEV NAME(LOC) 5N.3; GLUCOSE,POINT OF CARE 238 MG/DL (70-110)
[2021-07-31 00:35] VITALS: BP 120/53
[2021-07-31 03:49] VITALS: BP 131/59
[2021-07-31 05:42] LABS: BASOPHILS % (AUTO) 0.4 % (0.0-2.0); EOSINOPHILS % (AUTO) 2.8 % (1.0-6.0); MEAN CORPUSCULAR HEMOGLOBIN 30.7 pg (26.0-34.0); MEAN CORPUSCULAR HGB CONC 33.2 G/dL (31.0-37.0); MEAN CORPUSCULAR VOLUME 93 fL (80-100); MONOCYTES # (AUTO) 0.9 K/uL (0.1-1.0); MONOCYTES % (AUTO) 10.4 % (2.0-9.0); NEUTROPHILS # (AUTO) 6.3 K/uL (1.8-7.7); NEUTROPHILS % (AUTO) 74.4 % (40.0-70.0); PLATELET COUNT (AUTO) 366 K/uL (150-450); RED BLOOD CELL COUNT(AUTO) 2.59 MIL/uL (4.00-5.20); RED CELL DISTRIBUTION WIDTH 13.5 % (11.5-14.5)
[2021-07-31] MEDS: INSULIN LISPRO 100 UNITS/ML SQ PRN ×4 (06:20→21:37)
[2021-07-31 06:36] LABS: GLUCOMETER DEV NAME(LOC) 5N.3; GLUCOSE,POINT OF CARE 193 MG/DL (70-110)
[2021-07-31 06:38] LABS: CREATININE 3.92 mg/dL (0.60-1.30); MAGNESIUM 2.9 mg/dL (1.80-2.40); PHOSPHORUS 4.6 mg/dL (2.5-4.9); POTASSIUM 4.4 mmol/L (3.5-5.1)
[2021-07-31 07:04] VITALS: BP 151/70
[2021-07-31] MEDS: HEPARIN SODIUM,PORCINE 5,000 UNITS/ML VIAL SQ SCH ×2 (08:00→17:57)
[2021-07-31] MEDS: HydrALAZINE HCL 25 MG TABLET PO SCH ×2 (10:17→21:22)
[2021-07-31] MEDS: CARVEDILOL 3.125 MG TABLET PO SCH ×2 (10:17→21:22)
[2021-07-31] MEDS: LORATADINE 10 MG TABLET PO SCH (10:17)
[2021-07-31] MEDS: ASPIRIN 81 MG CHEWABLE TABLET PO SCH (10:17)
[2021-07-31] MEDS: ATORVASTATIN CALCIUM 20 MG TABLET PO SCH (10:18)
[2021-07-31] MEDS: EPOETIN ALFA 10,000 UNITS/ML VIAL SQ SCH (10:18)
[2021-07-31] MEDS: MULTIVITAMINS WITH MINERALS, THERAPEUTIC TABLET PO SCH (10:18)
[2021-07-31] MEDS: AmLODIPine BESYLATE 5 MG TABLET PO SCH (10:18)
[2021-07-31 10:37] VITALS: BP 140/61
[2021-07-31] MEDS: FUROSEMIDE 40 MG/4 ML VIAL IVP SCH ×2 (10:51→21:22)
[2021-07-31 15:01] VITALS: BP 129/54
[2021-07-31 19:52] VITALS: BP 144/60
[2021-07-31 21:20] LABS: GLUCOMETER DEV NAME(LOC) 5N.3; GLUCOSE,POINT OF CARE 251 MG/DL (70-110)
[2021-07-31 21:26] LABS: GLUCOMETER DEV NAME(LOC) 5N.1C; GLUCOSE,POINT OF CARE 232 MG/DL (70-110)
[2021-07-31 21:26] LABS: GLUCOMETER DEV NAME(LOC) 5N.1C; GLUCOSE,POINT OF CARE 219 MG/DL (70-110)
[2021-08-01 00:06] VITALS: BP 136/57
[2021-08-01] MEDS: HEPARIN SODIUM,PORCINE 5,000 UNITS/ML VIAL SQ SCH ×4 (00:41→23:43)
[2021-08-01 04:16] VITALS: BP 136/56
[2021-08-01] MEDS: INSULIN LISPRO 100 UNITS/ML SQ PRN ×4 (05:38→20:21)
[2021-08-01 05:44] LABS: GLUCOMETER DEV NAME(LOC) 5N.1C; GLUCOSE,POINT OF CARE 187 MG/DL (70-110)
[2021-08-01 06:45] LABS: CREATININE,URINE RANDOM 43.4 mg/dL (30.0-125.0)
[2021-08-01 07:39] VITALS: BP 148/63
[2021-08-01 07:40] LABS: CREATININE 3.27 mg/dL (0.60-1.30); PHOSPHORUS 3.6 mg/dL (2.5-4.9); POTASSIUM 3.8 mmol/L (3.5-5.1)
[2021-08-01] MEDS: LORATADINE 10 MG TABLET PO SCH (08:34)
[2021-08-01] MEDS: MULTIVITAMINS WITH MINERALS, THERAPEUTIC TABLET PO SCH (08:34)
[2021-08-01] MEDS: CARVEDILOL 3.125 MG TABLET PO SCH ×2 (08:34→20:12)
[2021-08-01] MEDS: DOCUSATE SODIUM 250 MG CAPSULE PO PRN (08:34)
[2021-08-01] MEDS: HydrALAZINE HCL 25 MG TABLET PO SCH ×2 (08:34→20:12)
[2021-08-01] MEDS: ASPIRIN 81 MG CHEWABLE TABLET PO SCH (08:34)
[2021-08-01] MEDS: AmLODIPine BESYLATE 5 MG TABLET PO SCH (08:34)
[2021-08-01] MEDS ORDERED: BUMETANIDE 1 MG TABLET ONE (08:38)
[2021-08-01] MEDS: ATORVASTATIN CALCIUM 20 MG TABLET PO SCH (08:38)
[2021-08-01] MEDS ORDERED: BUMETANIDE 0.25 MG/ML 4 ML VIAL IVP SCH (09:00)
[2021-08-01 12:11] VITALS: BP 139/63
[2021-08-01 15:25] VITALS: BP 131/59
[2021-08-01 20:56] VITALS: BP 145/62
[2021-08-01 21:12] LABS: GLUCOMETER DEV NAME(LOC) 5S.1; GLUCOSE,POINT OF CARE 242 MG/DL (70-110)
[2021-08-01 21:12] LABS: GLUCOMETER DEV NAME(LOC) 5S.1; GLUCOSE,POINT OF CARE 237 MG/DL (70-110)
[2021-08-01 23:14] LABS: GLUCOMETER DEV NAME(LOC) 5N.3; GLUCOSE,POINT OF CARE 214 MG/DL (70-110)
[2021-08-02 00:22] VITALS: BP 125/53
[2021-08-02 04:34] VITALS: BP 137/56
[2021-08-02 06:03] LABS: BASOPHILS % (AUTO) 0.6 % (0.0-2.0); EOSINOPHILS % (AUTO) 2.4 % (1.0-6.0); HEMATOCRIT 24.9 % (36-46); HEMOGLOBIN 8.2 g/dL (12.0-16.0); LYMPHOCYTES # (AUTO) 0.9 K/uL (1.0-4.8); LYMPHOCYTES % (AUTO) 12.5 % (22.0-44.0); MEAN CORPUSCULAR HEMOGLOBIN 31.1 pg (26.0-34.0); MEAN CORPUSCULAR HGB CONC 33.1 G/dL (31.0-37.0); MEAN CORPUSCULAR VOLUME 94 fL (80-100); MONOCYTES # (AUTO) 0.8 K/uL (0.1-1.0); MONOCYTES % (AUTO) 10.7 % (2.0-9.0); NEUTROPHILS # (AUTO) 5.6 K/uL (1.8-7.7); NEUTROPHILS % (AUTO) 73.8 % (40.0-70.0); PLATELET COUNT (AUTO) 362 K/uL (150-450); RED BLOOD CELL COUNT(AUTO) 2.64 MIL/uL (4.00-5.20); RED CELL DISTRIBUTION WIDTH 13.7 % (11.5-14.5)
[2021-08-02] MEDS: INSULIN LISPRO 100 UNITS/ML SQ PRN ×3 (06:18→18:21)
[2021-08-02 06:24] LABS: CALCIUM, TOTAL 8.2 mg/dL (8.8-10.5); CREATININE 3.53 mg/dL (0.60-1.30); MAGNESIUM 3.1 mg/dL (1.80-2.40); PHOSPHORUS 3.8 mg/dL (2.5-4.9); POTASSIUM 4.4 mmol/L (3.5-5.1)
[2021-08-02 07:26] VITALS: BP 143/65
[2021-08-02] MEDS: HEPARIN SODIUM,PORCINE 5,000 UNITS/ML VIAL SQ SCH ×2 (08:24→16:00)
[2021-08-02] MEDS: ASPIRIN 81 MG CHEWABLE TABLET PO SCH (08:24)
[2021-08-02] MEDS: DOCUSATE SODIUM 250 MG CAPSULE PO PRN (08:24)
[2021-08-02] MEDS: CARVEDILOL 3.125 MG TABLET PO SCH (08:24)
[2021-08-02] MEDS: AmLODIPine BESYLATE 5 MG TABLET PO SCH (08:25)
[2021-08-02] MEDS: HydrALAZINE HCL 25 MG TABLET PO SCH (08:25)
[2021-08-02] MEDS: LORATADINE 10 MG TABLET PO SCH (08:25)
[2021-08-02] MEDS: ATORVASTATIN CALCIUM 20 MG TABLET PO SCH (08:25)
[2021-08-02] MEDS: MULTIVITAMINS WITH MINERALS, THERAPEUTIC TABLET PO SCH (08:25)
[2021-08-02] MEDS: EPOETIN ALFA 10,000 UNITS/ML VIAL SQ SCH (08:39)
[2021-08-02 10:46] VITALS: BP 160/76
[2021-08-02 12:19] LABS: GLUCOMETER DEV NAME(LOC) 5S.1; GLUCOSE,POINT OF CARE 180 MG/DL (70-110)
[2021-08-02 14:12] VITALS: BP 163/60
[2021-08-02] MEDS ORDERED: AMLO-257 PO (17:03)
[2021-08-02] MEDS ORDERED: ASPI-1450 PO (17:03)
[2021-08-02] MEDS ORDERED: ATOR20TA86 PO (17:04)
[2021-08-02] MEDS ORDERED: CARV3 PO (17:05)
[2021-08-02] MEDS ORDERED: LORA10TA7 PO (17:05)
[2021-08-02] MEDS ORDERED: HYDR10TA31 PO (17:06)
[2021-08-02 19:32] VITALS: BP 151/64
[2021-08-03 01:25] LABS: GLUCOMETER DEV NAME(LOC) 5S.1; GLUCOSE,POINT OF CARE 253 MG/DL (70-110)
== END 2021-08-02 20:40 | disposition home or self-care (01) | DRG 291 ==
LOC: EMS 16:09 → 5S 18:44
PROVIDERS: ADMIT Internal Medicine; ATTEND Internal Medicine
PROC: 0W993ZZ Drainage of Right Pleural Cavity, Percutaneous Approach (ICD-10-PCS; 2021-07-21)
PROC: 0W993ZZ Drainage of Right Pleural Cavity, Percutaneous Approach (ICD-10-PCS; 2021-07-26)
PROC: 0TB03ZX Excision of Right Kidney, Percutaneous Approach, Diagnostic (ICD-10-PCS; principal; 2021-07-27)
DX: I13.0 Hypertensive heart and chronic kidney disease with heart failure and stage 1 through stage 4 chronic kidney disease, or unspecified chronic kidney disease (principal); J18.9 Pneumonia, unspecified organism; E43 Unspecified severe protein-calorie malnutrition; I50.33 Acute on chronic diastolic (congestive) heart failure; N18.4 Chronic kidney disease, stage 4 (severe); N17.9 Acute kidney failure, unspecified; E87.0 Hyperosmolality and hypernatremia; E87.2 Acidosis; Z68.1 Body mass index [BMI] 19.9 or less, adult; J91.8 Pleural effusion in other conditions classified elsewhere; R91.1 Solitary pulmonary nodule; E11.22 Type 2 diabetes mellitus with diabetic chronic kidney disease; E11.21 Type 2 diabetes mellitus with diabetic nephropathy; D50.9 Iron deficiency anemia, unspecified; E78.5 Hyperlipidemia, unspecified; D63.1 Anemia in chronic kidney disease; E11.65 Type 2 diabetes mellitus with hyperglycemia; M19.90 Unspecified osteoarthritis, unspecified site; Z20.822 Contact with and (suspected) exposure to COVID-19; R09.02 Hypoxemia; Z79.84 Long term (current) use of oral hypoglycemic drugs; Z79.899 Other long term (current) drug therapy
CPT/HCPCS: 32555; 50200; 71045; 71046; 71250; 76770; 76942; 80048; 80053; 81001; 81002; 82271; 82465; 82570; 82784; 82945; 82962; 83540; 83550; 83615; 83735; 83880; 83986; 84100; 84145; 84156; 84157; 84166; 84300; 84439; 84443; 84484; 84540; 85025; 85045; 85610; 85730; 86160; 86162; 86334; 87015; 87040; 87070; 87101; 87205; 87206; 87804; 88108; 88300; 88312; 89050; 89051; 93005; 93306; 93308; 93970; 97165; 97535; 99285; J0456; J0696; J0885; J1644; J1940; J2250; J2310; J2916; J3010; J3490; J7040; J7050; P9041; P9046; Q9967; 36415-L1; 36415-TC; U0003

== ENCOUNTER 2022-06-24 10:25 | Inpatient (IN) | payer MEDICARE ==
[~2022-06-24] VITALS: Ht 157.5 cm; Wt 47.3 kg
[~2022-06-24 10:25] MED LIST changes: +AMLO-257 PO; -AMLO10TA55 PO; +ASPI-1450 PO; +ATOR20TA86 PO; +CARV3 PO; +HYDR10TA31 PO; -HYDR50TA36 PO; -LINA5TAB PO; +LORA10TA7 PO; -METO50 PO; -REPA1TAB5 PO
[2022-06-24] MEDS ORDERED: LEVO50 PO (10:54)
[2022-06-24] MEDS ORDERED: FURO40 PO (10:54)
[2022-06-24] MEDS ORDERED: NIFE-79 PO (10:54)
[2022-06-24] MEDS ORDERED: INSLAN SQ (10:54)
[2022-06-24] MEDS ORDERED: HYDR25TA2 PO (10:54)
[2022-06-24] MEDS ORDERED: LOSA-382 PO ×2 (10:54)
[2022-06-24] MEDS ORDERED: HYDR50TA36 PO (12:25)
[2022-06-24] MEDS ORDERED: METO50 PO (12:25)
[2022-06-24] MEDS ORDERED: EMPA10TA3 PO (12:25)
[2022-06-24] MEDS ORDERED: LATA2.5D14 OU (12:25)
[2022-06-24] MEDS ORDERED: ASPI-1444 PO (12:25)
[2022-06-24] MEDS ORDERED: BUME2TAB5 PO (12:26)
[2022-06-24 12:28] LABS: BASOPHILS % (AUTO) 0.3 % (0.0-2.0); EOSINOPHILS % (AUTO) 0.2 % (1.0-6.0); HEMATOCRIT 23.9 % (36-46); HEMOGLOBIN 8.3 g/dL (12.0-16.0); LYMPHOCYTES # (AUTO) 0.5 K/uL (1.0-4.8); LYMPHOCYTES % (AUTO) 9.7 % (22.0-44.0); MEAN CORPUSCULAR HEMOGLOBIN 32.4 pg (26.0-34.0); MEAN CORPUSCULAR HGB CONC 34.8 G/dL (31.0-37.0); MEAN CORPUSCULAR VOLUME 93 fL (80-100); MONOCYTES # (AUTO) 0.2 K/uL (0.1-1.0); MONOCYTES % (AUTO) 4.8 % (2.0-9.0); NEUTROPHILS # (AUTO) 4.2 K/uL (1.8-7.7); PLATELET COUNT (AUTO) 286 K/uL (150-450); RED BLOOD CELL COUNT(AUTO) 2.57 MIL/uL (4.00-5.20); RED CELL DISTRIBUTION WIDTH 13.3 % (11.5-14.5)
[2022-06-24 12:39] LABS: INR 0.9 (0.9-1.1); PROTHROMBIN TIME 10.1 SEC (9.4-11.6)
[2022-06-24 12:45] LABS: BILIRUBIN,TOTAL 0.4 mg/dL (0.1-1.0); CALCIUM, TOTAL 8.2 mg/dL (8.8-10.5); CREATININE 2.57 mg/dL (0.60-1.30); POTASSIUM 4.7 mmol/L (3.5-5.1); TOTAL PROTEIN, SERUM 6.8 g/dL (6.4-8.2)
[2022-06-24 12:48] LABS: LACTIC ACID 0.5 mmol/L (0.4-2.0)
[2022-06-24] MEDS ORDERED: SODIUM CHLORIDE 3% 500 ML IV SCH (13:00)
[2022-06-24 13:10] LABS: COVID AG,FIA SOURCE NASAL SWAB
[2022-06-24] MEDS ORDERED: ALBUTEROL SULFATE 2.5 MG/0.5 ML NEB SOLUTION NEB PRN (13:30)
[2022-06-24] MEDS ORDERED: ACETAMINOPHEN 325 MG TABLET PO PRN (13:30)
[2022-06-24] MEDS ORDERED: DEXTROSE 50%-WATER 25 GM/50 ML SYRINGE IVP PRN (13:30)
[2022-06-24] MEDS ORDERED: HYDROCORTISONE 25 MG RECTAL SUPPOSITORY PR ONE (15:30)
[2022-06-24] MEDS ORDERED: ACETAMINOPHEN/CODEINE 300-15 MG TABLET PO ONE (15:30)
[2022-06-24] MEDS: HEPARIN SODIUM,PORCINE 5,000 UNITS/ML VIAL SQ SCH (16:25)
[2022-06-24 19:30] LABS: APPEARANCE,URINE CLEAR (CLEAR); BILIRUBIN,URINE NEGATIVE (NEGATIVE); GLUCOSE, URINE (UA) NEGATIVE (NEGATIVE); KETONES,URINE NEGATIVE (NEGATIVE); LEUKOCYTE ESTERASE ,URINE NEGATIVE (NEGATIVE); NITRATE,URINE NEGATIVE (NEGATIVE); OCCULT BLOOD,URINE NEGATIVE (NEGATIVE); PH,URINE 5.5 (5.0-8.0); PROTEIN,URINE 100-200,SEE CONFIRM mg/dL (NEGATIVE); SPECIFIC GRAVITIY, URINE 1.008 (1.003-1.030); UROBILINOGEN,URINE <=1.0 mg/dL (<=1.0)
[2022-06-24 20:00] VITALS: BP 130/57
[2022-06-24 20:09] LABS: SULFOSALICYLIC ACID,URINE 2+ (Negative)
[2022-06-24 20:11] LABS: RBC,URINE None Seen /HPF (0-2)
[2022-06-24 20:12] LABS: BACTERIA,URINE None Seen /HPF (None Seen)
[2022-06-25] VITALS: BP 118/48
[2022-06-25] MEDS: HEPARIN SODIUM,PORCINE 5,000 UNITS/ML VIAL SQ SCH ×3 (00:54→15:17)
[2022-06-25 03:11] LABS: GLUCOSE,POINT OF CARE 81 MG/DL (70-110)
[2022-06-25] MEDS: BISACODYL 10 MG RECTAL RECTAL SUPPOSITORY PR PRN ×2 (03:54→21:53)
[2022-06-25 04:00] VITALS: BP 127/51
[2022-06-25 06:02] LABS: GLUCOSE,POINT OF CARE 91 MG/DL (70-110)
[2022-06-25 08:00] VITALS: BP 160/55
[2022-06-25] MEDS ORDERED: SODIUM PHOS/SODIUM BIPHOS 133 ML ENEMA PR PRN (08:30)
[2022-06-25] MEDS: PANTOPRAZOLE SODIUM 40 MG/VIAL IVP SCH (08:30)
[2022-06-25 10:04] LABS: CALCIUM, TOTAL 8.5 mg/dL (8.8-10.5); CREATININE 2.28 mg/dL (0.60-1.30); POTASSIUM 4.5 mmol/L (3.5-5.1)
[2022-06-25] MEDS ORDERED: HYDROCORTISONE 25 MG RECTAL SUPPOSITORY PR ONE (10:30)
[2022-06-25 12:00] VITALS: BP 152/63
[2022-06-25 12:50] LABS: GLUCOSE,POINT OF CARE 120 MG/DL (70-110)
[2022-06-25 16:00] VITALS: BP_SYST 146; BP_SYST 165; BP_DIAS 64; BP_DIAS 65
[2022-06-25] MEDS: INSULIN LISPRO 100 UNITS/ML SQ PRN (16:55)
[2022-06-25] MEDS ORDERED: DEXTROSE 5%-WATER 250 ML IV ONE (17:00)
[2022-06-25 17:06] LABS: GLUCOSE,POINT OF CARE 166 MG/DL (70-110)
[2022-06-25] MEDS: NIFEdipine 30 MG ER TABLET PO SCH (19:42)
[2022-06-25 20:00] VITALS: BP 164/65
[2022-06-25] MEDS: METOPROLOL TARTRATE 50 MG TABLET PO SCH (21:20)
[2022-06-26] VITALS: BP 151/74
[2022-06-26] MEDS: HEPARIN SODIUM,PORCINE 5,000 UNITS/ML VIAL SQ SCH ×4 (01:52→23:39)
[2022-06-26 04:00] VITALS: BP 126/51
[2022-06-26 05:12] LABS: GLUCOSE,POINT OF CARE 75 MG/DL (70-110)
[2022-06-26 05:52] LABS: GLUCOSE,POINT OF CARE 97 MG/DL (70-110)
[2022-06-26 08:00] VITALS: BP 118/47
[2022-06-26] MEDS: NIFEdipine 30 MG ER TABLET PO SCH (08:26)
[2022-06-26] MEDS: PANTOPRAZOLE SODIUM 40 MG/VIAL IVP SCH (08:26)
[2022-06-26] MEDS: METOPROLOL TARTRATE 50 MG TABLET PO SCH ×2 (08:27→21:00)
[2022-06-26] MEDS: SODIUM CHLORIDE 1 GM TABLET PO SCH ×3 (11:53→21:43)
[2022-06-26 12:00] VITALS: BP 121/51
[2022-06-26 12:11] LABS: GLUCOSE,POINT OF CARE 150 MG/DL (70-110)
[2022-06-26 16:00] VITALS: BP 116/49
[2022-06-26] MEDS: INSULIN LISPRO 100 UNITS/ML SQ PRN ×2 (17:15→21:44)
[2022-06-26 17:52] LABS: GLUCOSE,POINT OF CARE 222 MG/DL (70-110)
[2022-06-26 20:00] VITALS: BP 129/46
[2022-06-27] VITALS (15 sets, daily range): BP systolic 133–185; BP diastolic 51–74
[2022-06-27 02:15] LABS: GLUCOSE,POINT OF CARE 192 MG/DL (70-110)
[2022-06-27 05:25] LABS: BASOPHILS % (AUTO) 0.3 % (0.0-2.0); EOSINOPHILS % (AUTO) 0.3 % (1.0-6.0); LYMPHOCYTES # (AUTO) 0.6 K/uL (1.0-4.8); LYMPHOCYTES % (AUTO) 7.3 % (22.0-44.0); MEAN CORPUSCULAR HEMOGLOBIN 32.6 pg (26.0-34.0); MEAN CORPUSCULAR HGB CONC 34.4 G/dL (31.0-37.0); MEAN CORPUSCULAR VOLUME 95 fL (80-100); MONOCYTES # (AUTO) 0.5 K/uL (0.1-1.0); MONOCYTES % (AUTO) 5.5 % (2.0-9.0); NEUTROPHILS # (AUTO) 7.2 K/uL (1.8-7.7); PLATELET COUNT (AUTO) 247 K/uL (150-450); RED BLOOD CELL COUNT(AUTO) 2.01 MIL/uL (4.00-5.20); RED CELL DISTRIBUTION WIDTH 13.7 % (11.5-14.5)
[2022-06-27 05:30] LABS: CALCIUM, TOTAL 8.6 mg/dL (8.8-10.5); CREATININE 2.01 mg/dL (0.60-1.30); POTASSIUM 3.9 mmol/L (3.5-5.1)
[2022-06-27 05:34] LABS: NEUTROPHILS % (AUTO) 86.6 % (40.0-70.0)
[2022-06-27 05:36] LABS: HEMATOCRIT 19.1 % (36-46); HEMOGLOBIN 6.6 g/dL (12.0-16.0)
[2022-06-27 06:11] LABS: GLUCOMETER DEV NAME(LOC) 5S.1B; GLUCOSE,POINT OF CARE 36 MG/DL (70-110)
[2022-06-27 07:01] LABS: GLUCOMETER DEV NAME(LOC) 5S.1B; GLUCOSE,POINT OF CARE 152 MG/DL (70-110)
[2022-06-27] MEDS: NIFEdipine 30 MG ER TABLET PO SCH (08:27)
[2022-06-27] MEDS: SODIUM CHLORIDE 1 GM TABLET PO SCH ×4 (08:27→20:38)
[2022-06-27] MEDS: METOPROLOL TARTRATE 50 MG TABLET PO SCH ×3 (08:28→20:38)
[2022-06-27] MEDS: HEPARIN SODIUM,PORCINE 5,000 UNITS/ML VIAL SQ SCH ×3 (08:28→23:10)
[2022-06-27] MEDS: PANTOPRAZOLE SODIUM 40 MG/VIAL IVP SCH (08:28)
[2022-06-27] MEDS ORDERED: EPOETIN ALFA 10,000 UNITS/ML VIAL SQ SCH (10:30)
[2022-06-27] MEDS ORDERED: SODIUM CHLORIDE 0.9% 500 ML IV ONE (10:35)
[2022-06-27] MEDS: VITAMIN B COMP/VIT C/FOLIC ACID CAPSULE PO SCH (12:10)
[2022-06-27] MEDS: INSULIN LISPRO 100 UNITS/ML SQ PRN (12:12)
[2022-06-27] MEDS: FERROUS SULFATE 325 MG EC TABLET PO SCH (17:35)
[2022-06-27 20:36] LABS: GLUCOMETER DEV NAME(LOC) 5S.1B; GLUCOSE,POINT OF CARE 102 MG/DL (70-110)
[2022-06-27 20:36] LABS: GLUCOMETER DEV NAME(LOC) 5S.1B; GLUCOSE,POINT OF CARE 203 MG/DL (70-110)
[2022-06-27 20:46] LABS: GLUCOMETER DEV NAME(LOC) 5S.1B; GLUCOSE,POINT OF CARE 161 MG/DL (70-110)
[2022-06-28] VITALS (8 sets, daily range): BP systolic 145–185; BP diastolic 57–73
[2022-06-28 06:31] LABS: GLUCOMETER DEV NAME(LOC) 5S.1B; GLUCOSE,POINT OF CARE 148 MG/DL (70-110)
[2022-06-28] MEDS: HEPARIN SODIUM,PORCINE 5,000 UNITS/ML VIAL SQ SCH ×2 (08:00→15:28)
[2022-06-28] MEDS: PANTOPRAZOLE SODIUM 40 MG/VIAL IVP SCH (08:20)
[2022-06-28] MEDS: NIFEdipine 30 MG ER TABLET PO SCH (08:20)
[2022-06-28] MEDS: SODIUM CHLORIDE 1 GM TABLET PO SCH ×4 (08:21→20:25)
[2022-06-28] MEDS: METOPROLOL TARTRATE 50 MG TABLET PO SCH (08:21)
[2022-06-28] MEDS: VITAMIN B COMP/VIT C/FOLIC ACID CAPSULE PO SCH (08:21)
[2022-06-28] MEDS: FERROUS SULFATE 325 MG EC TABLET PO SCH ×2 (08:21→17:31)
[2022-06-28 17:51] LABS: GLUCOMETER DEV NAME(LOC) 5S.1B; GLUCOSE,POINT OF CARE 173 MG/DL (70-110)
[2022-06-28 17:51] LABS: GLUCOMETER DEV NAME(LOC) 5S.1B; GLUCOSE,POINT OF CARE 193 MG/DL (70-110)
[2022-06-28] MEDS ORDERED: CloNIDine HCL 0.1 MG TABLET PO PRN (18:00)
[2022-06-28] MEDS: LOSARTAN POTASSIUM 25 MG TABLET PO SCH ×2 (18:13→20:25)
[2022-06-28] MEDS: ONDANSETRON HCL 4 MG/2 ML VIAL IVP PRN (18:16)
[2022-06-28 18:35] LABS: CALCIUM, TOTAL 8.8 mg/dL (8.8-10.5); CREATININE 1.81 mg/dL (0.60-1.30)
[2022-06-28] MEDS: INSULIN LISPRO 100 UNITS/ML SQ PRN (20:24)
[2022-06-29] MEDS: HEPARIN SODIUM,PORCINE 5,000 UNITS/ML VIAL SQ SCH ×3 (00:12→16:00)
[2022-06-29 03:51] LABS: GLUCOMETER DEV NAME(LOC) 5S.1B; GLUCOSE,POINT OF CARE 201 MG/DL (70-110)
[2022-06-29 04:26] VITALS: BP 142/55
[2022-06-29] MEDS: INSULIN LISPRO 100 UNITS/ML SQ PRN ×2 (06:00→18:01)
[2022-06-29 06:23] LABS: BASOPHILS % (AUTO) 0.3 % (0.0-2.0); EOSINOPHILS % (AUTO) 0 % (1.0-6.0); HEMATOCRIT 24.7 % (36-46); HEMOGLOBIN 8.3 g/dL (12.0-16.0); LYMPHOCYTES # (AUTO) 0.9 K/uL (1.0-4.8); LYMPHOCYTES % (AUTO) 8.4 % (22.0-44.0); MEAN CORPUSCULAR HEMOGLOBIN 31.6 pg (26.0-34.0); MEAN CORPUSCULAR HGB CONC 33.4 G/dL (31.0-37.0); MEAN CORPUSCULAR VOLUME 95 fL (80-100); MONOCYTES # (AUTO) 0.6 K/uL (0.1-1.0); MONOCYTES % (AUTO) 5.6 % (2.0-9.0); NEUTROPHILS # (AUTO) 9.5 K/uL (1.8-7.7); PLATELET COUNT (AUTO) 257 K/uL (150-450); RED BLOOD CELL COUNT(AUTO) 2.61 MIL/uL (4.00-5.20); RED CELL DISTRIBUTION WIDTH 14.4 % (11.5-14.5)
[2022-06-29 06:34] LABS: CREATININE 1.81 mg/dL (0.60-1.30); POTASSIUM 4.1 mmol/L (3.5-5.1)
[2022-06-29 06:57] LABS: GLUCOMETER DEV NAME(LOC) 5S.2B; GLUCOSE,POINT OF CARE 175 MG/DL (70-110)
[2022-06-29 07:04] LABS: NEUTROPHILS % (AUTO) 85.7 % (40.0-70.0)
[2022-06-29 08:00] VITALS: BP 161/82
[2022-06-29] MEDS: SODIUM CHLORIDE 1 GM TABLET PO SCH ×3 (09:45→20:57)
[2022-06-29] MEDS: FERROUS SULFATE 325 MG EC TABLET PO SCH ×2 (09:45→18:00)
[2022-06-29] MEDS: NIFEdipine 30 MG ER TABLET PO SCH (09:45)
[2022-06-29] MEDS: VITAMIN B COMP/VIT C/FOLIC ACID CAPSULE PO SCH (09:46)
[2022-06-29] MEDS: LOSARTAN POTASSIUM 25 MG TABLET PO SCH ×2 (09:46→20:57)
[2022-06-29] MEDS: PANTOPRAZOLE SODIUM 40 MG/VIAL IVP SCH (09:46)
[2022-06-29 12:00] VITALS: BP 150/78
[2022-06-29 16:00] VITALS: BP 148/68
[2022-06-29 17:21] LABS: GLUCOMETER DEV NAME(LOC) 5S.1B; GLUCOSE,POINT OF CARE 155 MG/DL (70-110)
[2022-06-29 17:36] LABS: GLUCOMETER DEV NAME(LOC) 5S.2B; GLUCOSE,POINT OF CARE 214 MG/DL (70-110)
[2022-06-29 19:41] VITALS: BP 130/57
[2022-06-29 20:06] LABS: GLUCOMETER DEV NAME(LOC) 5S.2B; GLUCOSE,POINT OF CARE 197 MG/DL (70-110)
[2022-06-30] VITALS (11 sets, daily range): BP systolic 132–172; BP diastolic 52–72
[2022-06-30] MEDS: HEPARIN SODIUM,PORCINE 5,000 UNITS/ML VIAL SQ SCH ×4 (00:04→23:52)
[2022-06-30] MEDS: INSULIN LISPRO 100 UNITS/ML SQ PRN ×3 (06:42→21:02)
[2022-06-30 07:01] LABS: GLUCOMETER DEV NAME(LOC) 5S.1B; GLUCOSE,POINT OF CARE 202 MG/DL (70-110)
[2022-06-30 07:43] LABS: BASOPHILS % (AUTO) 0.5 % (0.0-2.0); EOSINOPHILS % (AUTO) 0.3 % (1.0-6.0); HEMATOCRIT 21.8 % (36-46); HEMOGLOBIN 7.4 g/dL (12.0-16.0); LYMPHOCYTES # (AUTO) 0.8 K/uL (1.0-4.8); LYMPHOCYTES % (AUTO) 11.2 % (22.0-44.0); MEAN CORPUSCULAR HEMOGLOBIN 31.9 pg (26.0-34.0); MEAN CORPUSCULAR HGB CONC 33.8 G/dL (31.0-37.0); MEAN CORPUSCULAR VOLUME 95 fL (80-100); MONOCYTES # (AUTO) 0.5 K/uL (0.1-1.0); MONOCYTES % (AUTO) 7.6 % (2.0-9.0); NEUTROPHILS # (AUTO) 5.7 K/uL (1.8-7.7); NEUTROPHILS % (AUTO) 80.4 % (40.0-70.0); PLATELET COUNT (AUTO) 238 K/uL (150-450); RED CELL DISTRIBUTION WIDTH 14.8 % (11.5-14.5)
[2022-06-30 08:09] LABS: CALCIUM, TOTAL 8.8 mg/dL (8.8-10.5); CREATININE 2.07 mg/dL (0.60-1.30); POTASSIUM 3.9 mmol/L (3.5-5.1)
[2022-06-30] MEDS: PANTOPRAZOLE SODIUM 40 MG/VIAL IVP SCH (08:58)
[2022-06-30] MEDS: NIFEdipine 30 MG ER TABLET PO SCH (08:59)
[2022-06-30] MEDS: VITAMIN B COMP/VIT C/FOLIC ACID CAPSULE PO SCH (08:59)
[2022-06-30] MEDS: LOSARTAN POTASSIUM 25 MG TABLET PO SCH (08:59)
[2022-06-30] MEDS: FERROUS SULFATE 325 MG EC TABLET PO SCH ×2 (08:59→18:50)
[2022-06-30] MEDS: SODIUM CHLORIDE 1 GM TABLET PO SCH ×3 (08:59→20:52)
[2022-06-30] MEDS ORDERED: NACL1 PO (11:39)
[2022-06-30] MEDS ORDERED: LOSARTAN POTASSIUM 25 MG TABLET PO ONE (11:45)
[2022-06-30] MEDS ORDERED: SODIUM CHLORIDE 0.9% 500 ML IV ONE (11:45)
[2022-06-30 14:56] LABS: GLUCOMETER DEV NAME(LOC) 5S.2B; GLUCOSE,POINT OF CARE 217 MG/DL (70-110)
[2022-06-30 19:11] LABS: GLUCOMETER DEV NAME(LOC) 5S.1B; GLUCOSE,POINT OF CARE 208 MG/DL (70-110)
[2022-06-30] MEDS: ONDANSETRON HCL 4 MG/2 ML VIAL IVP PRN (20:52)
[2022-06-30 20:55] LABS: GLUCOMETER DEV NAME(LOC) 5S.2B; GLUCOSE,POINT OF CARE 189 MG/DL (70-110)
[2022-06-30] MEDS ORDERED: LOSARTAN POTASSIUM 50 MG TABLET PO SCH (21:00)
[2022-07-01 00:30] VITALS: BP 151/58
[2022-07-01] MEDS: ONDANSETRON HCL 4 MG/2 ML VIAL IVP PRN (01:53)
[2022-07-01 04:32] VITALS: BP 165/71
[2022-07-01] MEDS: INSULIN LISPRO 100 UNITS/ML SQ PRN (06:42)
[2022-07-01 06:52] LABS: GLUCOMETER DEV NAME(LOC) 5S.2B; GLUCOSE,POINT OF CARE 175 MG/DL (70-110)
[2022-07-01 07:30] VITALS: BP 177/73
[2022-07-01 08:54] LABS: BASOPHILS % (AUTO) 0.5 % (0.0-2.0); EOSINOPHILS % (AUTO) 0.6 % (1.0-6.0); HEMATOCRIT 27.6 % (36-46); HEMOGLOBIN 9.3 g/dL (12.0-16.0); LYMPHOCYTES # (AUTO) 0.7 K/uL (1.0-4.8); LYMPHOCYTES % (AUTO) 11.8 % (22.0-44.0); MEAN CORPUSCULAR HEMOGLOBIN 31.8 pg (26.0-34.0); MEAN CORPUSCULAR HGB CONC 33.8 G/dL (31.0-37.0); MEAN CORPUSCULAR VOLUME 94 fL (80-100); MONOCYTES # (AUTO) 0.4 K/uL (0.1-1.0); MONOCYTES % (AUTO) 7.6 % (2.0-9.0); NEUTROPHILS # (AUTO) 4.7 K/uL (1.8-7.7); NEUTROPHILS % (AUTO) 79.5 % (40.0-70.0); PLATELET COUNT (AUTO) 248 K/uL (150-450); RED BLOOD CELL COUNT(AUTO) 2.93 MIL/uL (4.00-5.20); RED CELL DISTRIBUTION WIDTH 14.7 % (11.5-14.5)
[2022-07-01 08:55] LABS: CALCIUM, TOTAL 8.8 mg/dL (8.8-10.5); CREATININE 1.94 mg/dL (0.60-1.30); POTASSIUM 3.8 mmol/L (3.5-5.1)
[2022-07-01] MEDS: FERROUS SULFATE 325 MG EC TABLET PO SCH (09:15)
[2022-07-01] MEDS: NIFEdipine 30 MG ER TABLET PO SCH (09:15)
[2022-07-01] MEDS: PANTOPRAZOLE SODIUM 40 MG/VIAL IVP SCH (09:15)
[2022-07-01] MEDS: VITAMIN B COMP/VIT C/FOLIC ACID CAPSULE PO SCH (09:15)
[2022-07-01] MEDS: SODIUM CHLORIDE 1 GM TABLET PO SCH (09:15)
[2022-07-01] MEDS: HEPARIN SODIUM,PORCINE 5,000 UNITS/ML VIAL SQ SCH (09:15)
[2022-07-01 11:10] VITALS: BP 157/70
[2022-07-01 20:41] LABS: GLUCOMETER DEV NAME(LOC) 5S.2B; GLUCOSE,POINT OF CARE 114 MG/DL (70-110)
== END 2022-07-01 13:27 | disposition home or self-care (01) | DRG 640 ==
LOC: EMS 10:29 → ICU 18:09 → 5N 06-27 05:28
PROVIDERS: ADMIT Internal Medicine; ATTEND Internal Medicine
PROC: 30233N1 Transfusion of Nonautologous Red Blood Cells into Peripheral Vein, Percutaneous Approach (ICD-10-PCS; principal; 2022-06-27)
DX: E87.1 Hypo-osmolality and hyponatremia (principal); G93.41 Metabolic encephalopathy; E46 Unspecified protein-calorie malnutrition; N18.4 Chronic kidney disease, stage 4 (severe); Z68.1 Body mass index [BMI] 19.9 or less, adult; E11.65 Type 2 diabetes mellitus with hyperglycemia; I07.1 Rheumatic tricuspid insufficiency; D63.1 Anemia in chronic kidney disease; Z20.822 Contact with and (suspected) exposure to COVID-19; T50.2X5A Adverse effect of carbonic-anhydrase inhibitors, benzothiadiazides and other diuretics, initial encounter; D63.8 Anemia in other chronic diseases classified elsewhere; F03.90 Unspecified dementia, unspecified severity, without behavioral disturbance, psychotic disturbance, mood disturbance, and anxiety; E11.22 Type 2 diabetes mellitus with diabetic chronic kidney disease; R53.81 Other malaise; E11.319 Type 2 diabetes mellitus with unspecified diabetic retinopathy without macular edema; E11.649 Type 2 diabetes mellitus with hypoglycemia without coma; I12.9 Hypertensive chronic kidney disease with stage 1 through stage 4 chronic kidney disease, or unspecified chronic kidney disease; K59.00 Constipation, unspecified; K62.89 Other specified diseases of anus and rectum; Z79.899 Other long term (current) drug therapy; Z79.4 Long term (current) use of insulin; Z79.82 Long term (current) use of aspirin; Y92.89 Other specified places as the place of occurrence of the external cause
CPT/HCPCS: 51702; 71045; 74176; 80048; 80053; 81001; 81002; 81003; 82962; 83605; 83880; 83930; 83935; 84295; 84300; 84484; 85025; 85610; 85730; 86850; 86900; 86901; 86923; 87081; 92610; 93005; 93970; 97110; 97162; 97166; 97530; 97535; 99291; C9113; G0378; J0885; J1644; J2405; J7030; J7040; J7060; P9016; 36415-L1; 36415-TC

== ENCOUNTER 2022-08-09 17:00 | Inpatient (IN) | payer MEDICARE, MEDICAID ==
[~2022-08-09] VITALS: Ht 152.4 cm; Wt 54.9 kg
[~2022-08-09 17:00] MED LIST changes: -AMLO-257 PO; +ASPI-1444 PO; -ASPI-1450 PO; +BUME2TAB5 PO; -CARV3 PO; +EMPA10TA3 PO; -HYDR10TA31 PO; +HYDR50TA36 PO; +INSLAN SQ; +LATA2.5D14 OU; +LEVO50 PO; -LORA10TA7 PO; +LOSA-382 PO; +NACL1 PO; +NIFE-79 PO
[2022-08-09 18:45] LABS: BASOPHILS % (AUTO) 0.7 % (0.0-2.0); EOSINOPHILS % (AUTO) 1.7 % (1.0-6.0); HEMATOCRIT 30.5 % (36-46); HEMOGLOBIN 10.1 g/dL (12.0-16.0); LYMPHOCYTES # (AUTO) 1.6 K/uL (1.0-4.8); LYMPHOCYTES % (AUTO) 25.5 % (22.0-44.0); MEAN CORPUSCULAR HEMOGLOBIN 32.1 pg (26.0-34.0); MEAN CORPUSCULAR HGB CONC 33.1 G/dL (31.0-37.0); MEAN CORPUSCULAR VOLUME 97 fL (80-100); MONOCYTES # (AUTO) 0.6 K/uL (0.1-1.0); MONOCYTES % (AUTO) 9.7 % (2.0-9.0); NEUTROPHILS # (AUTO) 3.8 K/uL (1.8-7.7); NEUTROPHILS % (AUTO) 62.4 % (40.0-70.0); PLATELET COUNT (AUTO) 177 K/uL (150-450); RED BLOOD CELL COUNT(AUTO) 3.15 MIL/uL (4.00-5.20); RED CELL DISTRIBUTION WIDTH 14.5 % (11.5-14.5)
[2022-08-09 18:54] LABS: CALCIUM, TOTAL 8.3 mg/dL (8.8-10.5); CREATININE 3.52 mg/dL (0.60-1.30); POTASSIUM 3.4 mmol/L (3.5-5.1)
[2022-08-09 19:00] LABS: BILIRUBIN,TOTAL 0.3 mg/dL (0.1-1.0); TOTAL PROTEIN, SERUM 6.9 g/dL (6.4-8.2)
[2022-08-09] MEDS ORDERED: ACETAMINOPHEN 325 MG TABLET PO PRN (20:15)
[2022-08-09] MEDS ORDERED: DEXTROSE 50%-WATER 25 GM/50 ML SYRINGE IVP PRN (20:15)
[2022-08-09] MEDS ORDERED: ONDANSETRON HCL 4 MG/2 ML VIAL IVP PRN (20:15)
[2022-08-09] MEDS ORDERED: DOCU-385 PO (21:04)
[2022-08-09] MEDS ORDERED: HYDR50TA36 PO (21:04)
[2022-08-09 21:10] LABS: ERYTHROCYTE SEDIMENTATION RATE 32 MM/HR (0-20)
[2022-08-09 22:59] VITALS: BP 147/59
[2022-08-09] MEDS: HEPARIN SODIUM,PORCINE 5,000 UNITS/ML VIAL SQ SCH (23:16)
[2022-08-10] MEDS ORDERED: NITROGLYCERIN 0.4 MG SUBLINGUAL TABLET #25 SL ONE (05:00)
[2022-08-10] MEDS: NITROGLYCERIN 2% (1 GM=INCH) PACKET TP SCH ×2 (05:24→12:09)
[2022-08-10 05:27] VITALS: BP 188/58
[2022-08-10] MEDS ORDERED: TERAZOSIN HCL 2 MG CAPSULE PO ONE (05:30)
[2022-08-10] MEDS: LEVOTHYROXINE SODIUM 50 MCG TABLET PO SCH (05:52)
[2022-08-10 06:43] LABS: BASOPHILS % (AUTO) 0.8 % (0.0-2.0); EOSINOPHILS % (AUTO) 3.3 % (1.0-6.0); HEMATOCRIT 28.4 % (36-46); HEMOGLOBIN 9.6 g/dL (12.0-16.0); LYMPHOCYTES # (AUTO) 1.4 K/uL (1.0-4.8); LYMPHOCYTES % (AUTO) 28.9 % (22.0-44.0); MEAN CORPUSCULAR HEMOGLOBIN 32.5 pg (26.0-34.0); MEAN CORPUSCULAR HGB CONC 33.6 G/dL (31.0-37.0); MEAN CORPUSCULAR VOLUME 97 fL (80-100); MONOCYTES # (AUTO) 0.4 K/uL (0.1-1.0); MONOCYTES % (AUTO) 9.3 % (2.0-9.0); NEUTROPHILS # (AUTO) 2.8 K/uL (1.8-7.7); NEUTROPHILS % (AUTO) 57.7 % (40.0-70.0); PLATELET COUNT (AUTO) 156 K/uL (150-450); RED BLOOD CELL COUNT(AUTO) 2.94 MIL/uL (4.00-5.20); RED CELL DISTRIBUTION WIDTH 14.4 % (11.5-14.5)
[2022-08-10 06:51] LABS: GLUCOMETER DEV NAME(LOC) 5S.2B; GLUCOSE,POINT OF CARE 110 MG/DL (70-110)
[2022-08-10 07:25] VITALS: BP 162/62
[2022-08-10 07:32] LABS: CALCIUM, TOTAL 8.1 mg/dL (8.8-10.5); CREATININE 3.21 mg/dL (0.60-1.30); POTASSIUM 3.3 mmol/L (3.5-5.1)
[2022-08-10 07:33] LABS: MAGNESIUM 1.9 mg/dL (1.80-2.40)
[2022-08-10] MEDS: ASPIRIN 81 MG DR TABLET PO SCH (08:35)
[2022-08-10] MEDS: NIFEdipine 60 MG ER TABLET PO SCH ×2 (08:35→21:09)
[2022-08-10] MEDS: HEPARIN SODIUM,PORCINE 5,000 UNITS/ML VIAL SQ SCH ×2 (08:36→16:50)
[2022-08-10] MEDS: DOCUSATE SODIUM 100 MG CAPSULE PO SCH ×2 (08:36→21:10)
[2022-08-10 11:36] VITALS: BP 173/56
[2022-08-10] MEDS: BUMETANIDE 0.25 MG/ML 4 ML VIAL IVP SCH ×2 (11:44→21:09)
[2022-08-10] MEDS ORDERED: ATOR20TA65 PO (12:01)
[2022-08-10] MEDS ORDERED: SPIR-37 PO (12:01)
[2022-08-10] MEDS: INSULIN LISPRO 100 UNITS/ML SQ PRN ×3 (12:13→21:13)
[2022-08-10] MEDS ORDERED: HydrALAZINE HCL 20 MG/ML VIAL IVP PRN (15:00)
[2022-08-10 15:25] VITALS: BP 144/86
[2022-08-10] MEDS ORDERED: EPOETIN ALFA 10,000 UNITS/ML VIAL SQ SCH (15:30)
[2022-08-10 17:32] LABS: GLUCOMETER DEV NAME(LOC) 5S.2B; GLUCOSE,POINT OF CARE 163 MG/DL (70-110)
[2022-08-10 17:32] LABS: GLUCOMETER DEV NAME(LOC) 5S.2B; GLUCOSE,POINT OF CARE 240 MG/DL (70-110)
[2022-08-10 20:03] VITALS: BP 134/61
[2022-08-10] MEDS: LATANOPROST 0.005% 2.5 ML OPHTHALMIC SOLUTION OU SCH (21:09)
[2022-08-10] MEDS: CARVEDILOL 3.125 MG TABLET PO SCH (21:10)
[2022-08-10 23:56] VITALS: BP 117/58
[2022-08-11 00:51] LABS: GLUCOMETER DEV NAME(LOC) 5S.2B; GLUCOSE,POINT OF CARE 195 MG/DL (70-110)
[2022-08-11] MEDS: HEPARIN SODIUM,PORCINE 5,000 UNITS/ML VIAL SQ SCH ×3 (01:36→17:33)
[2022-08-11 05:00] VITALS: BP 118/50
[2022-08-11] MEDS: LEVOTHYROXINE SODIUM 50 MCG TABLET PO SCH (06:40)
[2022-08-11 07:28] LABS: TPROTEIN TIMED,URINE 110 mg/dL
[2022-08-11 07:29] LABS: COLLECTION TIME,URINE 24 HR; TPROTEIN URINE, 24HRS COLL 2200 mg/24Hr (0-165)
[2022-08-11 07:31] LABS: CALCIUM, TOTAL 8.3 mg/dL (8.8-10.5); CREATININE 2.95 mg/dL (0.60-1.30); MAGNESIUM 1.9 mg/dL (1.80-2.40); PHOSPHORUS 5.9 mg/dL (2.5-4.9); POTASSIUM 3.3 mmol/L (3.5-5.1)
[2022-08-11 07:32] VITALS: BP 126/49
[2022-08-11] MEDS: NIFEdipine 60 MG ER TABLET PO SCH ×2 (08:44→20:30)
[2022-08-11] MEDS: DOCUSATE SODIUM 100 MG CAPSULE PO SCH ×2 (08:45→21:06)
[2022-08-11] MEDS: CARVEDILOL 3.125 MG TABLET PO SCH ×2 (08:45→20:27)
[2022-08-11] MEDS: ASPIRIN 81 MG DR TABLET PO SCH (08:46)
[2022-08-11] MEDS: BUMETANIDE 0.25 MG/ML 4 ML VIAL IVP SCH ×2 (08:47→20:27)
[2022-08-11] MEDS ORDERED: TERAZOSIN HCL 2 MG CAPSULE PO SCH (09:00)
[2022-08-11] MEDS: POTASSIUM CHLORIDE 20 MEQ ER TABLET PO SCH ×2 (11:39→20:27)
[2022-08-11] MEDS: INSULIN LISPRO 100 UNITS/ML SQ PRN ×3 (11:43→20:26)
[2022-08-11 16:34] VITALS: BP 117/54
[2022-08-11 17:51] LABS: GLUCOMETER DEV NAME(LOC) 5S.2B; GLUCOSE,POINT OF CARE 266 MG/DL (70-110)
[2022-08-11 18:41] LABS: GLUCOMETER DEV NAME(LOC) 5N.3; GLUCOSE,POINT OF CARE 298 MG/DL (70-110)
[2022-08-11 20:25] VITALS: BP 110/84
[2022-08-11] MEDS: LATANOPROST 0.005% 2.5 ML OPHTHALMIC SOLUTION OU SCH (21:06)
[2022-08-12] VITALS (7 sets, daily range): BP systolic 134–170; BP diastolic 59–68
[2022-08-12] MEDS: HEPARIN SODIUM,PORCINE 5,000 UNITS/ML VIAL SQ SCH ×4 (00:25→23:14)
[2022-08-12] MEDS: INSULIN LISPRO 100 UNITS/ML SQ PRN ×3 (06:12→17:13)
[2022-08-12] MEDS: LEVOTHYROXINE SODIUM 50 MCG TABLET PO SCH (06:13)
[2022-08-12 06:15] LABS: BASOPHILS % (AUTO) 0.5 % (0.0-2.0); EOSINOPHILS % (AUTO) 2.2 % (1.0-6.0); HEMATOCRIT 25.6 % (36-46); HEMOGLOBIN 8.4 g/dL (12.0-16.0); LYMPHOCYTES # (AUTO) 1.2 K/uL (1.0-4.8); LYMPHOCYTES % (AUTO) 23.5 % (22.0-44.0); MEAN CORPUSCULAR HEMOGLOBIN 31.8 pg (26.0-34.0); MEAN CORPUSCULAR HGB CONC 32.9 G/dL (31.0-37.0); MEAN CORPUSCULAR VOLUME 97 fL (80-100); MONOCYTES # (AUTO) 0.5 K/uL (0.1-1.0); NEUTROPHILS # (AUTO) 3.2 K/uL (1.8-7.7); NEUTROPHILS % (AUTO) 64.8 % (40.0-70.0); PLATELET COUNT (AUTO) 143 K/uL (150-450); RED BLOOD CELL COUNT(AUTO) 2.65 MIL/uL (4.00-5.20); RED CELL DISTRIBUTION WIDTH 14.5 % (11.5-14.5)
[2022-08-12 06:26] LABS: GLUCOMETER DEV NAME(LOC) 5N.3; GLUCOSE,POINT OF CARE 165 MG/DL (70-110)
[2022-08-12 06:33] LABS: ALBUMIN 2.6 g/dL (3.4-5.0); BILIRUBIN,TOTAL 0.2 mg/dL (0.1-1.0); CALCIUM, TOTAL 7.8 mg/dL (8.8-10.5); CREATININE 3.02 mg/dL (0.60-1.30); MAGNESIUM 1.9 mg/dL (1.80-2.40); PHOSPHORUS 5.3 mg/dL (2.5-4.9); POTASSIUM 4.3 mmol/L (3.5-5.1); TOTAL PROTEIN, SERUM 6.1 g/dL (6.4-8.2)
[2022-08-12] MEDS: BUMETANIDE 0.25 MG/ML 4 ML VIAL IVP SCH (09:14)
[2022-08-12] MEDS: POTASSIUM CHLORIDE 20 MEQ ER TABLET PO SCH (09:14)
[2022-08-12] MEDS: AmLODIPine BESYLATE 10 MG TABLET PO SCH (09:15)
[2022-08-12] MEDS: DOCUSATE SODIUM 100 MG CAPSULE PO SCH ×2 (09:15→20:18)
[2022-08-12] MEDS: ASPIRIN 81 MG DR TABLET PO SCH (09:15)
[2022-08-12] MEDS: CARVEDILOL 6.25 MG TABLET PO SCH ×2 (09:15→20:18)
[2022-08-12 13:00] LABS: CREATININE,URINE RANDOM 16.8 mg/dL (30.0-125.0)
[2022-08-12 13:12] LABS: APPEARANCE,URINE HAZY (CLEAR); BILIRUBIN,URINE NEGATIVE (NEGATIVE); GLUCOSE, URINE (UA) 300-500 mg/dL (NEGATIVE); KETONES,URINE NEGATIVE (NEGATIVE); LEUKOCYTE ESTERASE ,URINE MODERATE (NEGATIVE); NITRATE,URINE NEGATIVE (NEGATIVE); OCCULT BLOOD,URINE NEGATIVE (NEGATIVE); PH,URINE 8.5 (5.0-8.0); PROTEIN,URINE 100-200,SEE CONFIRM mg/dL (NEGATIVE); SPECIFIC GRAVITIY, URINE 1.008 (1.003-1.030); UROBILINOGEN,URINE <=1.0 mg/dL (<=1.0)
[2022-08-12 13:19] LABS: BACTERIA,URINE Many /HPF (None Seen); RBC,URINE 0-2 /HPF (0-2); SULFOSALICYLIC ACID,URINE 2+ (Negative)
[2022-08-12 13:20] LABS: TRIPLE PHOSPHATE CRYSTAL,UR Moderate /LPF (None Seen)
[2022-08-12] MEDS: LATANOPROST 0.005% 2.5 ML OPHTHALMIC SOLUTION OU SCH (20:18)
[2022-08-13 04:10] VITALS: BP 153/64
[2022-08-13] MEDS: INSULIN LISPRO 100 UNITS/ML SQ PRN ×2 (06:02→12:09)
[2022-08-13] MEDS: LEVOTHYROXINE SODIUM 50 MCG TABLET PO SCH (06:03)
[2022-08-13 06:25] LABS: BASOPHILS % (AUTO) 0.3 % (0.0-2.0); EOSINOPHILS % (AUTO) 1.6 % (1.0-6.0); HEMATOCRIT 27.2 % (36-46); HEMOGLOBIN 9.2 g/dL (12.0-16.0); LYMPHOCYTES % (AUTO) 18.2 % (22.0-44.0); MEAN CORPUSCULAR HEMOGLOBIN 32.8 pg (26.0-34.0); MEAN CORPUSCULAR HGB CONC 33.8 G/dL (31.0-37.0); MEAN CORPUSCULAR VOLUME 97 fL (80-100); MONOCYTES # (AUTO) 0.5 K/uL (0.1-1.0); MONOCYTES % (AUTO) 9.2 % (2.0-9.0); NEUTROPHILS # (AUTO) 3.9 K/uL (1.8-7.7); NEUTROPHILS % (AUTO) 70.7 % (40.0-70.0); PLATELET COUNT (AUTO) 154 K/uL (150-450); RED CELL DISTRIBUTION WIDTH 14.6 % (11.5-14.5)
[2022-08-13 06:26] LABS: GLUCOMETER DEV NAME(LOC) 5S.2B; GLUCOSE,POINT OF CARE 200 MG/DL (70-110)
[2022-08-13 06:26] LABS: GLUCOMETER DEV NAME(LOC) 5S.2B; GLUCOSE,POINT OF CARE 222 MG/DL (70-110)
[2022-08-13 07:03] LABS: BILIRUBIN,TOTAL 0.3 mg/dL (0.1-1.0); CALCIUM, TOTAL 8.5 mg/dL (8.8-10.5); CREATININE 2.93 mg/dL (0.60-1.30); MAGNESIUM 1.9 mg/dL (1.80-2.40); PHOSPHORUS 4.1 mg/dL (2.5-4.9); POTASSIUM 4.6 mmol/L (3.5-5.1); TOTAL PROTEIN, SERUM 6.6 g/dL (6.4-8.2)
[2022-08-13 07:06] LABS: % IRON SATURATION 23.4 % (22-44)
[2022-08-13 07:26] LABS: GLUCOMETER DEV NAME(LOC) 5N.3; GLUCOSE,POINT OF CARE 164 MG/DL (70-110)
[2022-08-13 07:26] LABS: GLUCOMETER DEV NAME(LOC) 5N.3; GLUCOSE,POINT OF CARE 158 MG/DL (70-110)
[2022-08-13 07:26] LABS: GLUCOMETER DEV NAME(LOC) 5N.3; GLUCOSE,POINT OF CARE 114 MG/DL (70-110)
[2022-08-13] MEDS: BUMETANIDE 0.25 MG/ML 4 ML VIAL IVP SCH (08:29)
[2022-08-13] MEDS: HEPARIN SODIUM,PORCINE 5,000 UNITS/ML VIAL SQ SCH (08:29)
[2022-08-13] MEDS: AmLODIPine BESYLATE 10 MG TABLET PO SCH (08:29)
[2022-08-13] MEDS: CARVEDILOL 6.25 MG TABLET PO SCH (08:29)
[2022-08-13] MEDS: ASPIRIN 81 MG DR TABLET PO SCH (08:29)
[2022-08-13] MEDS: DOCUSATE SODIUM 100 MG CAPSULE PO SCH (08:35)
[2022-08-13 08:50] VITALS: BP 155/59
[2022-08-13] MEDS ORDERED: HydrALAZINE HCL 50 MG TABLET PO SCH (10:00)
[2022-08-13] MEDS ORDERED: LEVO50 PO (10:40)
[2022-08-13] MEDS ORDERED: CARV6 PO (10:40)
[2022-08-13] MEDS ORDERED: BUME1TAB6 PO (10:40)
[2022-08-13] MEDS ORDERED: ASPI-1444 PO (10:40)
[2022-08-13] MEDS ORDERED: AMLO-258 PO (10:40)
[2022-08-13 12:28] VITALS: BP 145/62
[2022-08-13 15:41] VITALS: BP 140/66
[2022-08-13 19:41] LABS: GLUCOMETER DEV NAME(LOC) 5S.2B; GLUCOSE,POINT OF CARE 231 MG/DL (70-110)
[2022-08-13] MEDS ORDERED: BUMETANIDE 1 MG TABLET PO SCH (21:00)
[2022-08-15 06:06] LABS: ALPHA-1 URINE 5.7 %; ALPHA-2 URINE 6.9 %
[2022-08-16 05:06] LABS: ALPHA-1 URINE 4.6 %; ALPHA-2 URINE 8.4 %
== END 2022-08-13 16:45 | disposition home or self-care (01) | DRG 682 ==
LOC: EMS 17:12 → 5S 21:53
PROVIDERS: ADMIT Internal Medicine; ATTEND Internal Medicine
DX: N17.9 Acute kidney failure, unspecified (principal); I50.33 Acute on chronic diastolic (congestive) heart failure; E46 Unspecified protein-calorie malnutrition; I13.0 Hypertensive heart and chronic kidney disease with heart failure and stage 1 through stage 4 chronic kidney disease, or unspecified chronic kidney disease; E87.1 Hypo-osmolality and hyponatremia; N18.4 Chronic kidney disease, stage 4 (severe); E11.40 Type 2 diabetes mellitus with diabetic neuropathy, unspecified; D63.1 Anemia in chronic kidney disease; E11.22 Type 2 diabetes mellitus with diabetic chronic kidney disease; E11.319 Type 2 diabetes mellitus with unspecified diabetic retinopathy without macular edema; E87.6 Hypokalemia; Z79.899 Other long term (current) drug therapy; Z79.82 Long term (current) use of aspirin; Z90.49 Acquired absence of other specified parts of digestive tract
CPT/HCPCS: 71046; 80048; 80053; 81001; 81002; 81050; 82570; 82962; 83540; 83550; 83615; 83690; 83735; 83880; 83930; 84100; 84155; 84156; 84165; 84166; 84300; 84484; 85025; 85651; 86038; 86160; 86225; 86256; 86335; 87086; 87186; 93005; 93306; 93970; 99285; G0378; J0885; J1644; J3490; 36415-L1; 36415-TC

== ENCOUNTER 2023-01-16 20:27 | Inpatient (IN) | payer MEDICARE, MEDICAID ==
[~2023-01-16] VITALS: Ht 152.4 cm; Wt 55.1 kg
[~2023-01-16 20:27] MED LIST changes: +ACET325T51 PO; +AMLO-258 PO; -ASPI-1444 PO; +ASPI81 PO; +ASPI81TA87 PO; +ATOR20TA65 PO; +BICIT30L PO; +BUME1TAB34 PO; +BUME1TAB6 PO; -BUME2TAB5 PO; +CARV12 PO; +DOCU-350 PO; -EMPA10TA3 PO; +GABA-1216 PO; -HYDR50TA36 PO; +INSU100V SQ; -LATA2.5D14 OU; -LOSA-382 PO; -NACL1 PO; -NIFE-79 PO; +PANT-31 PO; +SENN-187 PO
[2023-01-16] MEDS ORDERED: XALA2.5OS OD (20:43)
[2023-01-16] MEDS ORDERED: LANT500T7 PO (20:43)
[2023-01-16] MEDS ORDERED: INSLAN SQ (20:47)
[2023-01-16] MEDS ORDERED: HYDR50TA36 PO (20:47)
[2023-01-16] MEDS ORDERED: SPIR-37 PO (20:47)
[2023-01-16] MEDS ORDERED: CALC0.253 PO (20:47)
[2023-01-16] MEDS ORDERED: SEVE800T7 PO (20:58)
[2023-01-16] MEDS ORDERED: CALCIUM GLUCONATE 100 MG/ML 10 ML IVP ONE (21:00)
[2023-01-16 21:26] LABS: BASOPHILS % (AUTO) 0.4 % (0.0-2.0); EOSINOPHILS % (AUTO) 1.9 % (1.0-6.0); HEMATOCRIT 24.9 % (36-46); HEMOGLOBIN 8.1 g/dL (12.0-16.0); LYMPHOCYTES # (AUTO) 0.6 K/uL (1.0-4.8); LYMPHOCYTES % (AUTO) 13.6 % (22.0-44.0); MEAN CORPUSCULAR HEMOGLOBIN 33.1 pg (26.0-34.0); MEAN CORPUSCULAR HGB CONC 32.5 G/dL (31.0-37.0); MEAN CORPUSCULAR VOLUME 102 fL (80-100); MONOCYTES # (AUTO) 0.2 K/uL (0.1-1.0); MONOCYTES % (AUTO) 5.2 % (2.0-9.0); NEUTROPHILS # (AUTO) 3.7 K/uL (1.8-7.7); NEUTROPHILS % (AUTO) 78.9 % (40.0-70.0); PLATELET COUNT (AUTO) 107 K/uL (150-450); RED BLOOD CELL COUNT(AUTO) 2.44 MIL/uL (4.00-5.20)
[2023-01-16 21:31] LABS: GLUCOSE,POINT OF CARE 326 MG/DL (70-110)
[2023-01-16] MEDS ORDERED: CARV12.530 PO (21:45)
[2023-01-16 21:49] LABS: ALBUMIN 3.3 g/dL (3.4-5.0); BILIRUBIN,TOTAL 0.3 mg/dL (0.1-1.0); CALCIUM, TOTAL 7.5 mg/dL (8.8-10.5); CREATININE 9.96 mg/dL (0.60-1.30); MAGNESIUM 2.6 mg/dL (1.80-2.40); THYROID STIMULATING HORMONE 5.76 uIU/mL (0.36-3.74)
[2023-01-16 21:53] LABS: PHOSPHORUS 11.5 mg/dL (2.5-4.9)
[2023-01-16 21:57] LABS: POTASSIUM 7.7 mmol/L (3.5-5.1)
[2023-01-16] MEDS ORDERED: INSULIN REGULAR, HUMAN 100 UNITS/ML IVP ONE (22:00)
[2023-01-16] MEDS ORDERED: DEXTROSE 50%-WATER 25 GM/50 ML SYRINGE IVP PRN (22:00)
[2023-01-16] MEDS ORDERED: CALCIUM CHLORIDE 100 MG/ML 10 ML SYRINGE IVP ONE (22:00)
[2023-01-16] MEDS ORDERED: ACETAMINOPHEN 325 MG TABLET PO PRN ×2 (22:00)
[2023-01-16] MEDS ORDERED: SODIUM BICARBONATE 50 MEQ/50 ML VIAL IVP ONE (22:00)
[2023-01-16] MEDS ORDERED: ONDANSETRON HCL 4 MG/2 ML VIAL IVP PRN (22:00)
[2023-01-16] MEDS ORDERED: ALBUTEROL SULFATE 2.5 MG/0.5 ML NEB SOLUTION NEB ONE (22:00)
[2023-01-16] MEDS ORDERED: SODIUM POLYSTYRENE SULFONATE 15 GM/60 ML SUSPENSION BOTTLE PO ONE (22:00)
[2023-01-16] MEDS ORDERED: 0.9% SODIUM CHLORIDE 15 ML NEB SOLUTION NEB ONE (22:29)
[2023-01-16] MEDS ORDERED: SODIUM BICARBONATE [ADULT] 8.4% 50 MEQ/50 ML SYRINGE IVP ONE ×2 (22:30→22:45)
[2023-01-16 23:37] LABS: APPEARANCE,URINE HAZY (CLEAR); BILIRUBIN,URINE NEGATIVE (NEGATIVE); GLUCOSE, URINE (UA) 150-200 mg/dL (NEGATIVE); KETONES,URINE NEGATIVE (NEGATIVE); LEUKOCYTE ESTERASE ,URINE TRACE (NEGATIVE); NITRATE,URINE NEGATIVE (NEGATIVE); OCCULT BLOOD,URINE NEGATIVE (NEGATIVE); PH,URINE 5.5 (5.0-8.0); PROTEIN,URINE 300-600,SEE CONFIRM mg/dL (NEGATIVE); SPECIFIC GRAVITIY, URINE 1.019 (1.003-1.030); UROBILINOGEN,URINE <=1.0 mg/dL (<=1.0)
[2023-01-16] MEDS: HEPARIN SODIUM,PORCINE 5,000 UNITS/ML VIAL SQ SCH (23:47)
[2023-01-16 23:50] LABS: BACTERIA,URINE None Seen /HPF (None Seen); RBC,URINE 0-2 /HPF (0-2); SQUAMOUS EPITHELIAL CELL,UR Few /LPF (None Seen); SULFOSALICYLIC ACID,URINE 3+ (Negative); WBC,URINE 0-2 /HPF (0-5)
[2023-01-16 23:51] LABS: AMORPHOUS SEDIMENT,UR Moderate /LPF (None Seen); COARSE GRANULAR CASTS,URINE 0-2 /LPF (None Seen)
[2023-01-17] VITALS (9 sets, daily range): BP systolic 112–157; BP diastolic 41–61
[2023-01-17 00:09] LABS: COVID AG,FIA SOURCE NASAL SWAB
[2023-01-17 00:34] LABS: CALCIUM, TOTAL 8.4 mg/dL (8.8-10.5); CREATININE 9.8 mg/dL (0.60-1.30)
[2023-01-17 00:36] LABS: POTASSIUM 6.3 mmol/L (3.5-5.1)
[2023-01-17 01:06] LABS: GLUCOSE,POINT OF CARE 233 MG/DL (70-110)
[2023-01-17 04:31] LABS: GLUCOMETER DEV NAME(LOC) ERT.5; GLUCOSE,POINT OF CARE 177 MG/DL (70-110)
[2023-01-17 05:58] LABS: BASOPHILS % (AUTO) 0.4 % (0.0-2.0); EOSINOPHILS % (AUTO) 2.5 % (1.0-6.0); HEMATOCRIT 24.9 % (36-46); HEMOGLOBIN 8.3 g/dL (12.0-16.0); LYMPHOCYTES # (AUTO) 0.5 K/uL (1.0-4.8); LYMPHOCYTES % (AUTO) 13.1 % (22.0-44.0); MEAN CORPUSCULAR HEMOGLOBIN 32.7 pg (26.0-34.0); MEAN CORPUSCULAR HGB CONC 33.2 G/dL (31.0-37.0); MEAN CORPUSCULAR VOLUME 99 fL (80-100); MONOCYTES # (AUTO) 0.3 K/uL (0.1-1.0); NEUTROPHILS # (AUTO) 3.1 K/uL (1.8-7.7); PLATELET COUNT (AUTO) 120 K/uL (150-450); RED BLOOD CELL COUNT(AUTO) 2.53 MIL/uL (4.00-5.20); RED CELL DISTRIBUTION WIDTH 14.3 % (11.5-14.5)
[2023-01-17 06:05] LABS: CALCIUM, TOTAL 8.7 mg/dL (8.8-10.5); CREATININE 6.78 mg/dL (0.60-1.30); MAGNESIUM 2.4 mg/dL (1.80-2.40); POTASSIUM 4.2 mmol/L (3.5-5.1)
[2023-01-17] MEDS ORDERED: LANTHANUM CARBONATE 500 MG CHEW TABLET PO SCH (08:00)
[2023-01-17] MEDS: NITROGLYCERIN 2% (1 GM=INCH) OINTMENT PACKET TP SCH ×3 (09:00→20:38)
[2023-01-17] MEDS: DOCUSATE SODIUM 250 MG CAPSULE PO SCH ×2 (09:00→21:00)
[2023-01-17] MEDS: CARVEDILOL 12.5 MG TABLET PO SCH ×2 (09:00→21:00)
[2023-01-17] MEDS: PANTOPRAZOLE SODIUM 40 MG DR TABLET PO SCH ×2 (09:07→20:32)
[2023-01-17] MEDS: ASPIRIN 81 MG DR TABLET PO SCH (09:07)
[2023-01-17] MEDS: ATORVASTATIN CALCIUM 20 MG TABLET PO SCH (09:07)
[2023-01-17] MEDS: AmLODIPine BESYLATE 10 MG TABLET PO SCH (09:07)
[2023-01-17] MEDS: HEPARIN SODIUM,PORCINE 5,000 UNITS/ML VIAL SQ SCH ×2 (09:08→16:36)
[2023-01-17 09:51] LABS: GLUCOSE,POINT OF CARE 205 MG/DL (70-110)
[2023-01-17 12:11] LABS: CALCIUM, TOTAL 7.9 mg/dL (8.8-10.5); CREATININE 6.96 mg/dL (0.60-1.30); POTASSIUM 4.2 mmol/L (3.5-5.1)
[2023-01-17 12:16] LABS: GLUCOMETER DEV NAME(LOC) 5N.1C; GLUCOSE,POINT OF CARE 261 MG/DL (70-110)
[2023-01-17] MEDS: SEVELAMER CARBONATE 800 MG TABLET PO SCH ×3 (12:18→20:32)
[2023-01-17] MEDS: HydrALAZINE HCL 50 MG TABLET PO SCH ×3 (12:19→20:31)
[2023-01-17] MEDS: LEVOTHYROXINE SODIUM 50 MCG TABLET PO SCH (12:19)
[2023-01-17] MEDS: CALCITRIOL 0.25 MCG CAPSULE PO SCH (12:19)
[2023-01-17] MEDS: LATANOPROST 0.005% 2.5 ML OPHTHALMIC SOLUTION OU SCH (12:19)
[2023-01-17] MEDS: INSULIN LISPRO 100 UNITS/ML SQ PRN ×2 (12:21→20:30)
[2023-01-17 19:17] LABS: CREATININE 7.45 mg/dL (0.60-1.30); POTASSIUM 4.4 mmol/L (3.5-5.1)
[2023-01-17] MEDS: GABAPENTIN 100 MG CAPSULE PO SCH (20:32)
[2023-01-17 20:45] LABS: GLUCOMETER DEV NAME(LOC) 5N.1C; GLUCOSE,POINT OF CARE 241 MG/DL (70-110)
[2023-01-17 20:46] LABS: GLUCOMETER DEV NAME(LOC) 5N.1C; GLUCOSE,POINT OF CARE 258 MG/DL (70-110)
[2023-01-18] VITALS (15 sets, daily range): BP systolic 101–153; BP diastolic 42–70
[2023-01-18] MEDS: HEPARIN SODIUM,PORCINE 5,000 UNITS/ML VIAL SQ SCH ×4 (00:04→23:12)
[2023-01-18] MEDS: LEVOTHYROXINE SODIUM 50 MCG TABLET PO SCH (06:25)
[2023-01-18] MEDS: INSULIN LISPRO 100 UNITS/ML SQ PRN ×2 (06:26→20:18)
[2023-01-18] MEDS ORDERED: CITRIC ACID/SODIUM CITRATE 30 ML SOLUTION UDCUP PO SCH (07:00)
[2023-01-18 07:01] LABS: GLUCOMETER DEV NAME(LOC) 5S.1B; GLUCOSE,POINT OF CARE 146 MG/DL (70-110)
[2023-01-18 07:19] LABS: CALCIUM, TOTAL 7.6 mg/dL (8.8-10.5); CREATININE 7.64 mg/dL (0.60-1.30); POTASSIUM 4.1 mmol/L (3.5-5.1); TOTAL PROTEIN, SERUM 6.5 g/dL (6.4-8.2)
[2023-01-18] MEDS: CARVEDILOL 12.5 MG TABLET PO SCH ×2 (08:16→20:19)
[2023-01-18] MEDS: NITROGLYCERIN 2% (1 GM=INCH) OINTMENT PACKET TP SCH ×3 (08:16→20:20)
[2023-01-18] MEDS: ASPIRIN 81 MG DR TABLET PO SCH (08:59)
[2023-01-18] MEDS: LATANOPROST 0.005% 2.5 ML OPHTHALMIC SOLUTION OU SCH (08:59)
[2023-01-18] MEDS: SEVELAMER CARBONATE 800 MG TABLET PO SCH ×3 (08:59→20:19)
[2023-01-18] MEDS: ATORVASTATIN CALCIUM 20 MG TABLET PO SCH (08:59)
[2023-01-18] MEDS: DOCUSATE SODIUM 250 MG CAPSULE PO SCH ×2 (08:59→20:19)
[2023-01-18] MEDS: CALCITRIOL 0.25 MCG CAPSULE PO SCH (09:02)
[2023-01-18] MEDS: PANTOPRAZOLE SODIUM 40 MG DR TABLET PO SCH ×2 (09:02→20:19)
[2023-01-18 10:41] LABS: INR 1.2 (0.9-1.1); PROTHROMBIN TIME 12.3 SEC (9.4-11.6)
[2023-01-18] MEDS: HydrALAZINE HCL 50 MG TABLET PO SCH ×3 (12:17→20:19)
[2023-01-18] MEDS: AmLODIPine BESYLATE 10 MG TABLET PO SCH (12:17)
[2023-01-18 18:18] LABS: SPECIMENTYPE,BODY FLUID PLEURAL
[2023-01-18 18:45] LABS: GLUCOMETER DEV NAME(LOC) 5S.1B; GLUCOSE,POINT OF CARE 74 MG/DL (70-110)
[2023-01-18 18:46] LABS: GLUCOMETER DEV NAME(LOC) 5S.1B; GLUCOSE,POINT OF CARE 106 MG/DL (70-110)
[2023-01-18 18:46] LABS: GLUCOMETER DEV NAME(LOC) 5N.1C; GLUCOSE,POINT OF CARE 106 MG/DL (70-110)
[2023-01-18 20:01] LABS: APPEARANCE,SPUN,BODY FLUID CLEAR (CLEAR); APPEARANCE,UNSPUN,BODY FLUID HAZY (CLEAR); COLOR,BODY FLUID YELLOW (LT YELLOW); LYMPHOCYTES,BODY FLUID 38 %; MONOCYTES,BODY FLUID 8 %; NEUTROPHILS,BODY FLUID 13 %; TOTAL VOLUME,BODY FLUID 1150 mL; WBC, BODY FLUID 76 /cu. mm.
[2023-01-18 20:02] LABS: OTHER CELLS,BODY FLUID NOTE
[2023-01-18 20:12] LABS: BASOPHILS,BODY FLUID 0 %; EOSINOPHILS,BF (ANAL) 0 %
[2023-01-18] MEDS: GABAPENTIN 100 MG CAPSULE PO SCH (20:19)
[2023-01-19] VITALS (14 sets, daily range): BP systolic 111–155; BP diastolic 42–91
[2023-01-19 05:52] LABS: BASOPHILS % (AUTO) 0.7 % (0.0-2.0); HEMATOCRIT 24.5 % (36-46); HEMOGLOBIN 8.2 g/dL (12.0-16.0); LYMPHOCYTES % (AUTO) 19.2 % (22.0-44.0); MEAN CORPUSCULAR HEMOGLOBIN 32.8 pg (26.0-34.0); MEAN CORPUSCULAR HGB CONC 33.5 G/dL (31.0-37.0); MEAN CORPUSCULAR VOLUME 98 fL (80-100); MONOCYTES # (AUTO) 0.3 K/uL (0.1-1.0); MONOCYTES % (AUTO) 6.7 % (2.0-9.0); NEUTROPHILS # (AUTO) 3.6 K/uL (1.8-7.7); NEUTROPHILS % (AUTO) 70.4 % (40.0-70.0); PLATELET COUNT (AUTO) 131 K/uL (150-450); RED BLOOD CELL COUNT(AUTO) 2.51 MIL/uL (4.00-5.20); RED CELL DISTRIBUTION WIDTH 14.5 % (11.5-14.5)
[2023-01-19] MEDS: LEVOTHYROXINE SODIUM 50 MCG TABLET PO SCH (06:39)
[2023-01-19 06:55] LABS: GLUCOMETER DEV NAME(LOC) 5S.1B; GLUCOSE,POINT OF CARE 138 MG/DL (70-110)
[2023-01-19 07:16] LABS: GLUCOMETER DEV NAME(LOC) 5N.1C; GLUCOSE,POINT OF CARE 167 MG/DL (70-110)
[2023-01-19 07:44] LABS: CALCIUM, TOTAL 7.4 mg/dL (8.8-10.5); CREATININE 4.58 mg/dL (0.60-1.30); PHOSPHORUS 5.2 mg/dL (2.5-4.9); POTASSIUM 3.7 mmol/L (3.5-5.1)
[2023-01-19] MEDS: HydrALAZINE HCL 50 MG TABLET PO SCH ×3 (09:00→21:34)
[2023-01-19] MEDS: CARVEDILOL 12.5 MG TABLET PO SCH ×2 (09:00→21:34)
[2023-01-19] MEDS: AmLODIPine BESYLATE 10 MG TABLET PO SCH (10:00)
[2023-01-19] MEDS: SEVELAMER CARBONATE 800 MG TABLET PO SCH ×3 (10:00→21:34)
[2023-01-19] MEDS: PANTOPRAZOLE SODIUM 40 MG DR TABLET PO SCH ×2 (10:00→21:34)
[2023-01-19] MEDS: ATORVASTATIN CALCIUM 20 MG TABLET PO SCH (10:00)
[2023-01-19] MEDS: FOLIC ACID/VIT B COMPLEX AND C TABLET PO SCH (10:00)
[2023-01-19] MEDS: HEPARIN SODIUM,PORCINE 5,000 UNITS/ML VIAL SQ SCH ×2 (10:00→17:27)
[2023-01-19] MEDS: DOCUSATE SODIUM 250 MG CAPSULE PO SCH ×2 (10:00→21:34)
[2023-01-19] MEDS: ASPIRIN 81 MG DR TABLET PO SCH (10:00)
[2023-01-19] MEDS: LATANOPROST 0.005% 2.5 ML OPHTHALMIC SOLUTION OU SCH (10:01)
[2023-01-19] MEDS: NITROGLYCERIN 2% (1 GM=INCH) OINTMENT PACKET TP SCH ×3 (10:01→21:34)
[2023-01-19] MEDS: CALCITRIOL 0.25 MCG CAPSULE PO SCH (10:48)
[2023-01-19] MEDS ORDERED: SODIUM CHLORIDE 0.9% 2,000 ML ONE (14:43)
[2023-01-19] MEDS: INSULIN LISPRO 100 UNITS/ML SQ PRN (19:13)
[2023-01-19 20:11] LABS: GLUCOMETER DEV NAME(LOC) 5N.1C; GLUCOSE,POINT OF CARE 135 MG/DL (70-110)
[2023-01-19] MEDS: GABAPENTIN 100 MG CAPSULE PO SCH (21:34)
[2023-01-20] VITALS (7 sets, daily range): BP systolic 112–144; BP diastolic 40–55
[2023-01-20 02:21] LABS: GLUCOMETER DEV NAME(LOC) 5S.2C; GLUCOSE,POINT OF CARE 141 MG/DL (70-110)
[2023-01-20] MEDS: LEVOTHYROXINE SODIUM 50 MCG TABLET PO SCH (06:48)
[2023-01-20 07:41] LABS: GLUCOMETER DEV NAME(LOC) 5N.1C; GLUCOSE,POINT OF CARE 109 MG/DL (70-110)
[2023-01-20] MEDS: HEPARIN SODIUM,PORCINE 5,000 UNITS/ML VIAL SQ SCH ×4 (09:09→23:46)
[2023-01-20] MEDS: LATANOPROST 0.005% 2.5 ML OPHTHALMIC SOLUTION OU SCH (09:09)
[2023-01-20] MEDS: DOCUSATE SODIUM 250 MG CAPSULE PO SCH ×2 (09:10→21:35)
[2023-01-20] MEDS: SEVELAMER CARBONATE 800 MG TABLET PO SCH ×3 (09:10→21:35)
[2023-01-20] MEDS: ASPIRIN 81 MG DR TABLET PO SCH (09:10)
[2023-01-20] MEDS: FOLIC ACID/VIT B COMPLEX AND C TABLET PO SCH (09:11)
[2023-01-20] MEDS: PANTOPRAZOLE SODIUM 40 MG DR TABLET PO SCH ×2 (09:11→21:36)
[2023-01-20] MEDS: ATORVASTATIN CALCIUM 20 MG TABLET PO SCH (09:11)
[2023-01-20] MEDS: NITROGLYCERIN 2% (1 GM=INCH) OINTMENT PACKET TP SCH ×4 (09:11→21:37)
[2023-01-20] MEDS: CALCITRIOL 0.25 MCG CAPSULE PO SCH (09:11)
[2023-01-20] MEDS: HydrALAZINE HCL 50 MG TABLET PO SCH ×3 (09:14→21:00)
[2023-01-20] MEDS: CARVEDILOL 12.5 MG TABLET PO SCH (10:38)
[2023-01-20] MEDS: AmLODIPine BESYLATE 10 MG TABLET PO SCH (10:38)
[2023-01-20] MEDS: INSULIN LISPRO 100 UNITS/ML SQ PRN ×2 (11:51→21:56)
[2023-01-20 17:16] LABS: GLUCOMETER DEV NAME(LOC) 5S.1B; GLUCOSE,POINT OF CARE 132 MG/DL (70-110)
[2023-01-20] MEDS: CARVEDILOL 6.25 MG TABLET PO SCH (21:00)
[2023-01-20 22:16] LABS: GLUCOMETER DEV NAME(LOC) 5S.1B; GLUCOSE,POINT OF CARE 115 MG/DL (70-110)
[2023-01-20] MEDS: GABAPENTIN 100 MG CAPSULE PO SCH (23:46)
[2023-01-21 02:16] LABS: GLUCOMETER DEV NAME(LOC) 6N.2B; GLUCOSE,POINT OF CARE 166 MG/DL (70-110)
[2023-01-21 05:02] VITALS: BP 133/54
[2023-01-21] MEDS: LEVOTHYROXINE SODIUM 50 MCG TABLET PO SCH (05:50)
[2023-01-21 06:47] LABS: GLUCOMETER DEV NAME(LOC) 6S.1B; GLUCOSE,POINT OF CARE 106 MG/DL (70-110)
[2023-01-21 07:26] LABS: EOSINOPHILS % (AUTO) 2.8 % (1.0-6.0); HEMATOCRIT 24.6 % (36-46); HEMOGLOBIN 8.3 g/dL (12.0-16.0); LYMPHOCYTES # (AUTO) 1.1 K/uL (1.0-4.8); LYMPHOCYTES % (AUTO) 21.6 % (22.0-44.0); MEAN CORPUSCULAR HEMOGLOBIN 32.7 pg (26.0-34.0); MEAN CORPUSCULAR HGB CONC 33.7 G/dL (31.0-37.0); MEAN CORPUSCULAR VOLUME 97 fL (80-100); MONOCYTES # (AUTO) 0.4 K/uL (0.1-1.0); MONOCYTES % (AUTO) 8.3 % (2.0-9.0); NEUTROPHILS # (AUTO) 3.4 K/uL (1.8-7.7); NEUTROPHILS % (AUTO) 66.3 % (40.0-70.0); PLATELET COUNT (AUTO) 135 K/uL (150-450); RED BLOOD CELL COUNT(AUTO) 2.53 MIL/uL (4.00-5.20); RED CELL DISTRIBUTION WIDTH 13.4 % (11.5-14.5)
[2023-01-21 07:37] LABS: CALCIUM, TOTAL 7.7 mg/dL (8.8-10.5); CREATININE 4.09 mg/dL (0.60-1.30)
[2023-01-21 08:00] VITALS: BP 125/46
[2023-01-21] MEDS: HEPARIN SODIUM,PORCINE 5,000 UNITS/ML VIAL SQ SCH ×3 (08:51→23:29)
[2023-01-21] MEDS: SEVELAMER CARBONATE 800 MG TABLET PO SCH ×3 (08:52→20:00)
[2023-01-21] MEDS: HydrALAZINE HCL 50 MG TABLET PO SCH ×3 (08:52→20:00)
[2023-01-21] MEDS: PANTOPRAZOLE SODIUM 40 MG DR TABLET PO SCH ×2 (08:53→20:00)
[2023-01-21] MEDS: CALCITRIOL 0.25 MCG CAPSULE PO SCH (08:54)
[2023-01-21] MEDS: ATORVASTATIN CALCIUM 20 MG TABLET PO SCH (08:54)
[2023-01-21] MEDS: FOLIC ACID/VIT B COMPLEX AND C TABLET PO SCH (08:54)
[2023-01-21] MEDS: DOCUSATE SODIUM 250 MG CAPSULE PO SCH ×2 (08:54→20:00)
[2023-01-21] MEDS: AmLODIPine BESYLATE 5 MG TABLET PO SCH (08:57)
[2023-01-21] MEDS: ASPIRIN 81 MG DR TABLET PO SCH (08:57)
[2023-01-21] MEDS: CARVEDILOL 6.25 MG TABLET PO SCH (08:58)
[2023-01-21] MEDS: NITROGLYCERIN 2% (1 GM=INCH) OINTMENT PACKET TP SCH ×3 (09:10→20:00)
[2023-01-21] MEDS: LATANOPROST 0.005% 2.5 ML OPHTHALMIC SOLUTION OU SCH (09:27)
[2023-01-21] MEDS: INSULIN LISPRO 100 UNITS/ML SQ PRN ×3 (11:35→20:59)
[2023-01-21] MEDS ORDERED: ALEN70TA80 PO (12:03)
[2023-01-21 15:20] VITALS: BP 122/56
[2023-01-21 17:07] LABS: GLUCOMETER DEV NAME(LOC) 6N.2B; GLUCOSE,POINT OF CARE 152 MG/DL (70-110)
[2023-01-21 17:36] LABS: GLUCOMETER DEV NAME(LOC) 6N.1; GLUCOSE,POINT OF CARE 127 MG/DL (70-110)
[2023-01-21] MEDS: CARVEDILOL 3.125 MG TABLET PO SCH (20:00)
[2023-01-21] MEDS: GABAPENTIN 100 MG CAPSULE PO SCH (20:00)
[2023-01-21 20:18] VITALS: BP 125/56
[2023-01-21 23:07] LABS: GLUCOMETER DEV NAME(LOC) 6N.2B; GLUCOSE,POINT OF CARE 133 MG/DL (70-110)
[2023-01-22] VITALS (13 sets, daily range): BP systolic 126–147; BP diastolic 45–67
[2023-01-22] MEDS: LEVOTHYROXINE SODIUM 50 MCG TABLET PO SCH (06:07)
[2023-01-22] MEDS: INSULIN LISPRO 100 UNITS/ML SQ PRN ×3 (06:08→21:22)
[2023-01-22 06:16] LABS: GLUCOMETER DEV NAME(LOC) 6N.2B; GLUCOSE,POINT OF CARE 155 MG/DL (70-110)
[2023-01-22] MEDS: PANTOPRAZOLE SODIUM 40 MG DR TABLET PO SCH ×2 (08:39→19:46)
[2023-01-22] MEDS: SEVELAMER CARBONATE 800 MG TABLET PO SCH ×3 (08:40→19:46)
[2023-01-22] MEDS: FOLIC ACID/VIT B COMPLEX AND C TABLET PO SCH (08:40)
[2023-01-22] MEDS: CALCITRIOL 0.25 MCG CAPSULE PO SCH (08:44)
[2023-01-22] MEDS: DOCUSATE SODIUM 250 MG CAPSULE PO SCH ×2 (08:44→19:46)
[2023-01-22] MEDS: ASPIRIN 81 MG DR TABLET PO SCH (08:45)
[2023-01-22] MEDS: HEPARIN SODIUM,PORCINE 5,000 UNITS/ML VIAL SQ SCH ×3 (08:47→23:10)
[2023-01-22] MEDS: NITROGLYCERIN 2% (1 GM=INCH) OINTMENT PACKET TP SCH ×3 (09:00→21:19)
[2023-01-22] MEDS: ATORVASTATIN CALCIUM 20 MG TABLET PO SCH (09:00)
[2023-01-22] MEDS: CARVEDILOL 3.125 MG TABLET PO SCH ×2 (09:00→19:46)
[2023-01-22] MEDS: HydrALAZINE HCL 50 MG TABLET PO SCH ×3 (09:00→21:18)
[2023-01-22] MEDS: AmLODIPine BESYLATE 5 MG TABLET PO SCH (09:00)
[2023-01-22] MEDS ORDERED: SODIUM CHLORIDE 0.9% 1,000 ML ONE (10:43)
[2023-01-22] MEDS: LATANOPROST 0.005% 2.5 ML OPHTHALMIC SOLUTION OU SCH (15:15)
[2023-01-22 17:22] LABS: GLUCOMETER DEV NAME(LOC) 6N.1; GLUCOSE,POINT OF CARE 125 MG/DL (70-110)
[2023-01-22 18:06] LABS: GLUCOMETER DEV NAME(LOC) 6N.2B; GLUCOSE,POINT OF CARE 145 MG/DL (70-110)
[2023-01-22] MEDS: GABAPENTIN 100 MG CAPSULE PO SCH (19:46)
[2023-01-22 20:36] LABS: GLUCOMETER DEV NAME(LOC) 6N.2B; GLUCOSE,POINT OF CARE 132 MG/DL (70-110)
[2023-01-23 05:29] VITALS: BP 127/46
[2023-01-23] MEDS: INSULIN LISPRO 100 UNITS/ML SQ PRN ×2 (05:55→11:47)
[2023-01-23] MEDS: LEVOTHYROXINE SODIUM 50 MCG TABLET PO SCH (05:55)
[2023-01-23 06:11] LABS: GLUCOMETER DEV NAME(LOC) 6N.1; GLUCOSE,POINT OF CARE 132 MG/DL (70-110)
[2023-01-23 08:00] VITALS: BP 136/49
[2023-01-23] MEDS: CARVEDILOL 3.125 MG TABLET PO SCH (08:15)
[2023-01-23] MEDS: HydrALAZINE HCL 50 MG TABLET PO SCH ×2 (08:15→16:01)
[2023-01-23] MEDS: AmLODIPine BESYLATE 5 MG TABLET PO SCH (08:15)
[2023-01-23] MEDS: FOLIC ACID/VIT B COMPLEX AND C TABLET PO SCH (08:15)
[2023-01-23] MEDS: CALCITRIOL 0.25 MCG CAPSULE PO SCH (08:15)
[2023-01-23] MEDS: DOCUSATE SODIUM 250 MG CAPSULE PO SCH (08:15)
[2023-01-23] MEDS: SEVELAMER CARBONATE 800 MG TABLET PO SCH ×2 (08:16→16:01)
[2023-01-23] MEDS: ASPIRIN 81 MG DR TABLET PO SCH (08:16)
[2023-01-23] MEDS: HEPARIN SODIUM,PORCINE 5,000 UNITS/ML VIAL SQ SCH ×2 (08:22→16:02)
[2023-01-23] MEDS: NITROGLYCERIN 2% (1 GM=INCH) OINTMENT PACKET TP SCH ×2 (08:22→16:02)
[2023-01-23] MEDS: LATANOPROST 0.005% 2.5 ML OPHTHALMIC SOLUTION OU SCH (08:22)
[2023-01-23] MEDS: PANTOPRAZOLE SODIUM 40 MG DR TABLET PO SCH (08:30)
[2023-01-23] MEDS: ATORVASTATIN CALCIUM 20 MG TABLET PO SCH (08:32)
[2023-01-23 15:16] LABS: GLUCOMETER DEV NAME(LOC) 6N.1; GLUCOSE,POINT OF CARE 151 MG/DL (70-110)
[2023-01-23 15:19] VITALS: BP 132/65
[2023-01-23] MEDS ORDERED: CARV3 PO (16:25)
[2023-01-23] MEDS ORDERED: GABA-1216 PO (16:25)
[2023-01-23] MEDS ORDERED: ASPI-1444 PO (16:25)
[2023-01-23] MEDS ORDERED: AMLO-257 PO (16:25)
[2023-01-23] MEDS ORDERED: ATOR20TA65 PO (16:25)
[2023-01-23] MEDS ORDERED: HYDR-4174 PO (16:25)
[2023-01-23] MEDS ORDERED: FOLI0.8T2 PO (16:25)
[2023-01-23] MEDS ORDERED: CALC0.2521 PO (16:25)
== END 2023-01-23 17:20 | disposition home or self-care (01) | DRG 291 ==
LOC: EMS 20:31 → ICUN 01-17 00:29 → 5S 01-17 09:56 → 6S 01-17 11:27
PROVIDERS: ADMIT Internal Medicine; ATTEND Internal Medicine
PROC: 5A1D70Z Performance of Urinary Filtration, Intermittent, Less than 6 Hours Per Day (ICD-10-PCS; 2023-01-17)
PROC: 5A1D70Z Performance of Urinary Filtration, Intermittent, Less than 6 Hours Per Day (ICD-10-PCS; 2023-01-18)
PROC: 0W993ZZ Drainage of Right Pleural Cavity, Percutaneous Approach (ICD-10-PCS; 2023-01-18)
PROC: 5A1D70Z Performance of Urinary Filtration, Intermittent, Less than 6 Hours Per Day (ICD-10-PCS; principal; 2023-01-19)
PROC: 5A1D70Z Performance of Urinary Filtration, Intermittent, Less than 6 Hours Per Day (ICD-10-PCS; 2023-01-22)
DX: I13.2 Hypertensive heart and chronic kidney disease with heart failure and with stage 5 chronic kidney disease, or end stage renal disease (principal); G92.8 Other toxic encephalopathy; I50.33 Acute on chronic diastolic (congestive) heart failure; N18.6 End stage renal disease; N17.0 Acute kidney failure with tubular necrosis; E87.20 Acidosis, unspecified; J91.8 Pleural effusion in other conditions classified elsewhere; E87.5 Hyperkalemia; R00.1 Bradycardia, unspecified; D63.1 Anemia in chronic kidney disease; Z20.822 Contact with and (suspected) exposure to COVID-19; E11.22 Type 2 diabetes mellitus with diabetic chronic kidney disease; E03.9 Hypothyroidism, unspecified; E86.0 Dehydration; E87.6 Hypokalemia; Z99.2 Dependence on renal dialysis; Z97.0 Presence of artificial eye; Z79.4 Long term (current) use of insulin; Z79.82 Long term (current) use of aspirin; Z79.899 Other long term (current) drug therapy; Z82.49 Family history of ischemic heart disease and other diseases of the circulatory system; Z83.3 Family history of diabetes mellitus
CPT/HCPCS: 32555; 71045; 71250; 76942; 80048; 80053; 81001; 81002; 82271; 82465; 82945; 82962; 83615; 83735; 83880; 83986; 84100; 84155; 84157; 84443; 84484; 85025; 85610; 87015; 87045; 87075; 87101; 87205; 87206; 87340; 89051; 89055; 90935; 93005; 93306; 94640; 97116; 97162; 97165; 97530; 97535; 99285; J0610; J1644; J1815; J3490; J7030; 36415-L1; 36415-TC; 87070; J7613